=== PATIENT | female | born 1960 | race Caucasian/White ===

== ENCOUNTER → 2016-10-09 | Outpatient (CLI) | payer BC ==
--- NOTE | 2016-10-09 14:18 | MR ---
EXAMINATION TYPE: MR brain wo con DATE OF EXAM: 10/09/2016 2:02 PM COMPARISON: NONE HISTORY: Dizziness FINDINGS: The ventricles, basal cisterns and sulci overlying the cerebral convexities are minimally enlarged. There is evidence of mild periventricular white matter ischemic demyelination. Remote deep white matter insults are also noted. No acute edema is seen on diffusion weighted imaging. There is no evidence for midline shift or mass effect. Acute intracranial hemorrhage or extra-axial collection is not evident. The paranasal sinuses and mastoid air cells are well-aerated. IMPRESSION: Age-related atrophic and chronic small vessel ischemic change. No acute intracranial process at this time.
== END | disposition home or self-care (01) ==
LOC: RADMRIMAIN 13:07
PROVIDERS: ATTEND Family Medicine
DX: R42 Dizziness and giddiness (principal)
CPT/HCPCS: 70551

== ENCOUNTER → 2016-11-17 | Day surgery (SDC) | payer BC ==
[~2016-11-17] MED LIST: BACITRACIN OINT 1 EACH PACKET TOPICAL ONE; LIDOCAINE 1% INJ 10MG/ML (20 ML MDV) ONE; SODIUM BICARB 4% 5 ML VIAL (0.48 MEQ/ML) ONE
--- NOTE | 2016-11-17 13:17 | USB ---
EXAMINATION TYPE: US biopsy breast VAD LT, Postprocedure MG diagnostic mammo LT wo CAD DATE OF EXAM: 11/17/2016 12:27 PM CLINICAL HISTORY: 56-year-old female referred for ultrasound-guided biopsy of palpable 2:00 left breast lesion. R92.8 Abnormal mammogram. TECHNIQUE: Ultrasound guided core biopsy of the left breast. COMPARISON: 11/01/2016 FINDINGS: The procedure of ultrasound guided core biopsy was explained to the patient. Benefits, alternatives, and risks were discussed. An informed consent was then obtained. The palpable elongated cyst cluster versus complex cyst was identified at the 2: 00 position zone B/C. The patient was placed in supine positioning for imaging and for the procedure. The overlying skin was prepped and draped in usual sterile fashion. Lidocaine buffered with bicarbonate was used as anesthetic into the skin and subcutaneous tissue up to area of concern in the left breast. Lidocaine/ epinephrine was not used due to allergy. Under ultrasound guidance, a 13-gauge vacuum-assisted Mammotome Elite biopsy gun device was used to obtain 8 core samples. Following this, a wing clip was left in lesion. The lesion collapsed after the first specimen acquisition. The patient tolerated the procedure well without any immediate complication. The patient was kept in the radiology department for short stay after the procedure and then discharged home in stable condition. Postprocedure mammogram shows clip in place at the upper outer quadrant. IMPRESSION: Successful, uncomplicated ultrasound guided core biopsy of palpable complex cyst versus cyst cluster at the 2:00 left breast; full pathology results to follow. Pathology Results: Benign BREAST, LEFT, CORE BIOPSY: FIBROCYSTIC CHANGES INCLUDING CYSTS AND CYST WALL WITH FIBROSIS AND CHRONIC INFLAMMATION. Recommendation Follow up mammogram of the left breast in 6 months. EFREN
== END ==
LOC: RADUSWWP 11:32
PROVIDERS: ATTEND Surgery
DX: N60.32 Fibrosclerosis of left breast (principal); R92.8 Other abnormal and inconclusive findings on diagnostic imaging of breast; N61.0 Mastitis without abscess; N64.89 Other specified disorders of breast; Z88.8 Allergy status to other drugs, medicaments and biological substances
CPT/HCPCS: 88305; 19083; G0206; A4648; J2001

== ENCOUNTER 2017-12-17 13:52 | Observation (INO) | payer BC ==
--- NOTE | 2017-12-17 14:14 | ED ---
General Adult HPI - General Chief complaint: Chest Pain Stated complaint: chest pain Time Seen by Provider: 12/17/17 13:54 Source: EMS, RN notes reviewed, old records reviewed Mode of arrival: EMS Limitations: no limitations - History of Present Illness Initial comments: 57-year-old female presented for evaluation of chest pain. Patient's pain began approximately one hour prior to arrival. She describes it as substernal pressure. She states she did feel slightly lightheaded and diaphoretic. No nausea or vomiting. No abdominal pain. Patient states she felt well prior to this. She has no history of CAD. She is a nonsmoker. No history of diabetes or hypertension. She states she has had a heart catheterization many years ago and was prescribed nitroglycerin at that time. She states this was secondary to very small coronary artery. No interventions at that time according to the patient. - Related Data Home Medications Medication Instructions Recorded Confirmed ALPRAZolam [Xanax] 0.5 mg PO DAILY PRN 09/04/14 12/17/17 Albuterol Sulfate [Proventil Hfa] 2 puff INHALATION RT-Q6H PRN 09/04/14 12/17/17 Aspirin 81 mg PO DAILY 09/04/14 12/17/17 Gabapentin [Neurontin] 400 mg PO BID 09/04/14 12/17/17 Loratadine [Claritin] 10 mg PO DAILY 09/04/14 12/17/17 buPROPion HCL [Wellbutrin XL] 300 mg PO DAILY 09/04/14 12/17/17 diphenhydrAMINE [Benadryl] 25 mg PO HS 09/04/14 12/17/17 Atorvastatin [Lipitor] 20 mg PO HS 12/17/17 12/17/17 Baclofen [Lioresal] 10 mg PO TID 12/17/17 12/17/17 Levothyroxine Sodium [Synthroid] 125 mcg PO HS 12/17/17 12/17/17 Meclizine [Antivert] 12.5 mg PO BID PRN 12/17/17 12/17/17 Meloxicam [Mobic] 15 mg PO DAILY 12/17/17 12/17/17 Nitroglycerin Sl Tabs [Nitrostat] 0.4 mg SUBLINGUAL Q5M PRN 12/17/17 12/17/17 Vortioxetine Hydrobromide 5 mg PO DAILY 12/17/17 12/17/17 [Trintellix] Allergies Allergy/AdvReac Type Severity Reaction Status Date / Time cashew nut AdvReac MIGRAINES Verified 12/17/17 14:27 epinephrine AdvReac Unknown Verified 12/17/17 14:26 Review of Systems ROS Statement: Those systems with pertinent positive or pertinent negative responses have been documented in the HPI. ROS Other: All systems not noted in ROS Statement are negative. Past Medical History Past Medical History: Hyperlipidemia, Thyroid Disorder History of Any Multi-Drug Resistant Organisms: None Reported Past Surgical History: Bladder Surgery, Hysterectomy, Orthopedic Surgery Additional Past Surgical History / Comment(s): cardiac ablation/metal bar rt arm /carpal tunnel Past Psychological History: Anxiety, Depression Smoking Status: Former smoker Past Alcohol Use History: Occasional General Exam Limitations: no limitations General appearance: alert, in no apparent distress Head exam: Present: atraumatic, normocephalic Eye exam: Present: normal appearance, PERRL, EOMI ENT exam: Present: normal exam, normal oropharynx Neck exam: Present: normal inspection. Absent: tenderness, meningismus Respiratory exam: Present: normal lung sounds bilaterally. Absent: respiratory distress, wheezes Cardiovascular Exam: Present: regular rate, normal rhythm GI/Abdominal exam: Present: soft. Absent: distended, tenderness, guarding Extremities exam: Present: normal inspection, normal capillary refill. Absent: pedal edema, calf tenderness Neurological exam: Present: alert, oriented X3, CN II-XII intact. Absent: motor sensory deficit Psychiatric exam: Present: normal affect, normal mood Skin exam: Present: warm, dry, intact. Absent: cyanosis, diaphoretic Course Vital Signs 12/17/17 12/17/17 13:54 15:17 Temperature 97.2 F L Pulse Rate 64 78 Respiratory 16 18 Rate Blood Pressure 118/56 135/64 O2 Sat by Pulse 99 96 Oximetry - Reevaluation(s) Reevaluation #1: 12/17/17 16:08 Patient remains chest pain-free while in the emergency department. EKG Findings - EKG Comments: EKG Findings:: EKG: Sinus bradycardia, rate of 57, CA interval 142, QRS duration 84, QTC [address] segment elevation or depression Medical Decision Making - Medical Decision Making 57-year-old female presenting with chief complaint of chest pain. Pain resolved at the time my evaluation. EKG shows no definitive signs of ischemia. Workup including CBC, CMP and troponin is negative. Chest x-ray showed borderline cardiomegaly with no acute process. Patient's chest pain is somewhat concerning. Her onset was just prior to arrival. She will be kept in observation for repeat cardiac enzymes and cardiology consultation. - Lab Data Result diagrams: 12/17/17 14:05 12/17/17 14:05 Lab Results 12/17/17 12/17/17 12/17/17 Range/Units 14:05 14:05 14:05 WBC 5.5 (3.8-10.6) k/uL RBC 4.03 (3.80-5.40) m/uL Hgb 13.3 (11.4-16.0) gm/dL Hct 39.0 (34.0-46.0) % MCV 96.9 (80.0-100.0) fL MCH 33.1 (25.0-35.0) pg MCHC 34.2 (31.0-37.0) g/dL RDW 12.5 (11.5-15.5) % Plt Count 238 (150-450) k/uL Neutrophils % 51 % Lymphocytes % 36 % Monocytes % 6 % Eosinophils % 4 % Basophils % 1 % Neutrophils # 2.8 (1.3-7.7) k/uL Lymphocytes # 1.9 (1.0-4.8) k/uL Monocytes # 0.3 (0-1.0) k/uL Eosinophils # 0.2 (0-0.7) k/uL Basophils # 0.0 (0-0.2) k/uL PT (9.0-12.0) sec INR (<1.2) APTT (22.0-30.0) sec Sodium 142 (137-145) mmol/L Potassium 4.8 (3.5-5.1) mmol/L Chloride 107 (98-107) mmol/L Carbon Dioxide 25 (22-30) mmol/L Anion Gap 10 mmol/L BUN 19 H (7-17) mg/dL Creatinine 0.59 (0.52-1.04) mg/dL Est GFR (CKD-EPI)AfAm >90 (>60 ml/min/1.73 sqM) Est GFR (CKD-EPI)NonAf >90 (>60 ml/min/1.73 sqM) Glucose 97 (74-99) mg/dL Calcium 9.6 (8.4-10.2) mg/dL Magnesium 2.1 (1.6-2.3) mg/dL Total Bilirubin 0.4 (0.2-1.3) mg/dL AST 23 (14-36) U/L ALT 34 (9-52) U/L Alkaline Phosphatase 101 (38-126) U/L Total Creatine Kinase 60 (30-135) U/L CK-MB (CK-2) 0.3 (0.0-2.4) ng/mL CK-MB (CK-2) Rel Index 0.5 Troponin I <0.012 (0.000-0.034) ng/mL NT-Pro-B Natriuret Pep pg/mL Total Protein 6.3 (6.3-8.2) g/dL Albumin 4.0 (3.5-5.0) g/dL 12/17/17 12/17/17 Range/Units 14:05 14:05 WBC (3.8-10.6) k/uL RBC (3.80-5.40) m/uL Hgb (11.4-16.0) gm/dL Hct (34.0-46.0) % MCV (80.0-100.0) fL MCH (25.0-35.0) pg MCHC (31.0-37.0) g/dL RDW (11.5-15.5) % Plt Count (150-450) k/uL Neutrophils % % Lymphocytes % % Monocytes % % Eosinophils % % Basophils % % Neutrophils # (1.3-7.7) k/uL Lymphocytes # (1.0-4.8) k/uL Monocytes # (0-1.0) k/uL Eosinophils # (0-0.7) k/uL Basophils # (0-0.2) k/uL PT 9.7 (9.0-12.0) sec INR 1.0 (<1.2) APTT 22.6 (22.0-30.0) sec Sodium (137-145) mmol/L Potassium (3.5-5.1) mmol/L Chloride (98-107) mmol/L Carbon Dioxide (22-30) mmol/L Anion Gap mmol/L BUN (7-17) mg/dL Creatinine (0.52-1.04) mg/dL Est GFR (CKD-EPI)AfAm (>60 ml/min/1.73 sqM) Est GFR (CKD-EPI)NonAf (>60 ml/min/1.73 sqM) Glucose (74-99) mg/dL Calcium (8.4-10.2) mg/dL Magnesium (1.6-2.3) mg/dL Total Bilirubin (0.2-1.3) mg/dL AST (14-36) U/L ALT (9-52) U/L Alkaline Phosphatase (38-126) U/L Total Creatine Kinase (30-135) U/L CK-MB (CK-2) (0.0-2.4) ng/mL CK-MB (CK-2) Rel Index Troponin I (0.000-0.034) ng/mL NT-Pro-B Natriuret Pep 80 pg/mL Total Protein (6.3-8.2) g/dL Albumin (3.5-5.0) g/dL Disposition Clinical Impression: Chest pain Disposition: HOME SELF-CARE Condition: Stable Is patient prescribed a controlled substance at d/c from ED?: No Referrals: Gustavo Lopez III, MD [Primary Care Provider] - 1-2 days Decision to Admit Reason: Admit from EC Decision Date: 12/17/17 Decision Time: 16:09
[2017-12-17 14:21] LABS: Basophils % (A) 1 %; Eosinophils # (A) 0.2 k/uL (0-0.7); Eosinophils % (A) 4 %; HGB 13.3 gm/dL (11.4-16.0); Lymphocytes # (A) 1.9 k/uL (1.0-4.8); Lymphocytes % (A) 36 %; MCH 33.1 pg (25.0-35.0); MCHC 34.2 g/dL (31.0-37.0); MCV 96.9 fL (80.0-100.0); Mean Platelet Volume 7.6; Monocytes # (A) 0.3 k/uL (0-1.0); Monocytes % (A) 6 %; Neutrophils # (A) 2.8 k/uL (1.3-7.7); Neutrophils % (A) 51 %; Platelet Count 238 k/uL (150-450); RBC 4.03 m/uL (3.80-5.40); RDW 12.5 % (11.5-15.5); WBC 5.5 k/uL (3.8-10.6)
[2017-12-17 14:31] LABS: Partial Thromboplastin Time 22.6 sec (22.0-30.0); Prothrombin Time 9.7 sec (9.0-12.0)
[2017-12-17 14:32] LABS: ALT 34 U/L (9-52); AST 23 U/L (14-36); Alkaline Phosphatase 101 U/L (38-126); Anion Gap 10 mmol/L; Blood Urea Nitrogen 19 mg/dL (7-17); Calcium 9.6 mg/dL (8.4-10.2); Carbon Dioxide 25 mmol/L (22-30); Chloride 107 mmol/L (98-107); Glucose 97 mg/dL (74-99); Magnesium 2.1 mg/dL (1.6-2.3); Potassium 4.8 mmol/L (3.5-5.1); Sodium 142 mmol/L (137-145); Total Bilirubin 0.4 mg/dL (0.2-1.3); Total Protein 6.3 g/dL (6.3-8.2)
[2017-12-17 14:50] LABS: Creatine Kinase 60 U/L (30-135)
[2017-12-17 15:04] LABS: Creatine Kinase MB 0.3 ng/mL (0.0-2.4); Troponin I <0.012 ng/mL (0.000-0.034)
--- NOTE | 2017-12-17 15:17 | XR ---
EXAMINATION TYPE: XR chest 2V DATE OF EXAM: 12/17/2017 COMPARISON: None HISTORY: 57-year-old female with chest pain, shortness of breath TECHNIQUE: AP and lateral views FINDINGS: Heart upper limits of normal in size. Aorta and pulmonary vasculature within normal limits. Mild diff use interstitial prominence as a chronic appearance. No consolidation or pleural effusion. IMPRESSION: Borderline heart size and chronic appearing changes. No acute process seen.
[2017-12-17] MEDS ORDERED: ONDANSETRON 4 MG/2 ML VIAL IVP PRN (16:06)
[2017-12-17] MEDS ORDERED: MORPHINE SULFATE 4 MG/ML SYRINGE IV PRN (16:06)
[2017-12-17] MEDS ORDERED: ACETAMINOPHEN TAB 325 MG TAB PO PRN (16:06)
[2017-12-17] MEDS ORDERED: NALOXONE 0.4 MG/ML 1 ML VIAL IV PRN (16:06)
[2017-12-17 20:21] LABS: Creatine Kinase 54 U/L (30-135)
[2017-12-17 20:34] LABS: Creatine Kinase MB 0.3 ng/mL (0.0-2.4); Troponin I <0.012 ng/mL (0.000-0.034)
[2017-12-17] MEDS ORDERED: LEVOTHYROXINE 112 MCG TAB PO SCH (22:45)
[2017-12-17] MEDS ORDERED: diphenhydrAMINE 25 MG CAP PO SCH (22:45)
[2017-12-17] MEDS ORDERED: MELOXICAM 7.5 MG TAB PO SCH (22:45)
[2017-12-17] MEDS ORDERED: ATORVASTATIN 20 MG TAB PO SCH (22:45)
[2017-12-17] MEDS ORDERED: ALBUTEROL NEBULIZED 2.5 MG/3 ML INHALATION PRN (23:15)
--- NOTE | 2017-12-17 23:15 | P.HPIM ---
History of Present Illness H&P Date: 12/17/17 Chief Complaint: Chest pain Patient is a 57-year-old female with a known history of hyperlipidemia, hypothyroidism, anxiety and depression came to ER with complaints of chest pain. Chest pain is mainly midsternal and radiated to the right side and to the back. Chest pain began approximately 1 hour prior to arrival last about 2- 3 minutes. Patient thinks that sublingual nitroglycerin did improve her pain. Patient does have some lightheadedness and sat down. No nausea vomiting. No abdominal pain. No history of prior coronary disease otherwise patient did have a history of cardiac ablation in 1998. Patient does have a family history of coronary artery disease. Her mom and dad of heart disease. Patient does have hyperlipidemia. She states she has had a heart catheterization many years ago and was prescribed nitroglycerin at that time. She states this was secondary to very small coronary artery. No interventions at that time according to the patient. Review of Systems Constitutional: Patient denies any fever or chills . No generalized weakness or weight loss. Abdomen: Patient denied nausea vomiting and diarrhea and abdominal pain. Cardiovascular: Patient denies any chest pain or short of breath no palpitations. Respiratory: patient denied any cough is from production. No shortness of breath Neurologic: Patient denied any numbness or tingling headache. Musculoskeletal: Patient denies any complaints of joint swelling or deformity. Skin: Negative Psychiatric: Negative Endocrine: No heat or cold intolerance. No recent weight gain. Genitourinary: No dysuria or hematuria. All other 14 point ROS negative except the above Past Medical History Past Medical History: Hyperlipidemia, Thyroid Disorder History of Any Multi-Drug Resistant Organisms: None Reported Past Surgical History: Bladder Surgery, Hysterectomy, Orthopedic Surgery Additional Past Surgical History / Comment(s): cardiac ablation/metal bar rt arm /carpal tunnel Past Psychological History: Anxiety, Depression Smoking Status: Former smoker Past Alcohol Use History: Occasional - Past Family History Mother Family Medical History: Deep Vein Thrombosis (DVT) Additional Family Medical History / Comment(s): arrythmia, fibroids,varicose veins, severe gluten allergies, ozzy masectomy d/t benign tumors Father Family Medical History: Cancer, Myocardial Infarction ([place]) Additional Family Medical History / Comment(s): lung cancer Medications and Allergies Home Medications Medication Instructions Recorded Confirmed Type ALPRAZolam [Xanax] 0.5 mg PO DAILY PRN 09/04/14 12/17/17 History Albuterol Sulfate [Proventil Hfa] 2 puff INHALATION RT-Q6H PRN 09/04/14 History Aspirin 81 mg PO DAILY 09/04/14 12/17/17 History Gabapentin [Neurontin] 400 mg PO BID 09/04/14 12/17/17 History Loratadine [Claritin] 10 mg PO DAILY 09/04/14 12/17/17 History buPROPion HCL [Wellbutrin XL] 300 mg PO DAILY 09/04/14 12/17/17 History diphenhydrAMINE [Benadryl] 25 mg PO HS 09/04/14 12/17/17 History Atorvastatin [Lipitor] 20 mg PO HS 12/17/17 12/17/17 History Baclofen [Lioresal] 10 mg PO TID PRN 12/17/17 12/17/17 History Levothyroxine Sodium 112 mcg PO HS 12/17/17 12/17/17 History Meclizine [Antivert] 12.5 mg PO BID PRN 12/17/17 12/17/17 History Meloxicam [Mobic] 15 mg PO HS 12/17/17 12/17/17 History Nitroglycerin Sl Tabs [Nitrostat] 0.4 mg SUBLINGUAL Q5M PRN 12/17/17 12/17/17 History Vortioxetine Hydrobromide 5 mg PO DAILY 12/17/17 12/17/17 History [Trintellix] Allergies Allergy/AdvReac Type Severity Reaction Status Date / Time cashew nut AdvReac MIGRAINES Verified 12/17/17 21:33 epinephrine AdvReac Unknown Verified 12/17/17 21:33 Physical Exam Vitals: Vital Signs Temp Pulse Resp BP Pulse Ox 12/17/17 16:33 70 16 129/72 96 12/17/17 15:17 78 18 135/64 96 12/17/17 13:54 97.2 F L 64 16 118/56 99 Intake and Output 12/17/17 12/17/17 12/17/17 06:59 14:59 22:59 Other: Weight 85.729 kg PHYSICAL EXAMINATION: Patient is lying in the bed comfortably, no acute distress, awake alert and oriented.. HEENT: Normocephalic. Neck is supple. Pupils reactive. Nostrils clear. Oral cavity is moist. Ears reveal no drainage. Neck reveals no JVD, carotid bruits, or thyromegaly. CHEST EXAMINATION: Trachea is central. Symmetrical expansion. Lung dickson clear to auscultation and percussion. CARDIAC: Normal S1, S2 with no gallops. No murmurs ABDOMEN: Soft. Bowel sounds normal. No organomegaly. No abdominal bruits. Extremities: reveal no edema. No clubbing or cyanosis Neurologically awake, alert, oriented x3 with well-coordinated movements. No focal deficits noted Skin: No rash or skin lesions. Psychiatric: Coperative. Nonsuicidal Musculoskeletal: No joint swelling or deformity. Normal range of motion. Results CBC & Chem 7: 12/17/17 14:05 12/17/17 14:05 Labs: Abnormal Lab Results - Last 24 Hours (Table) 12/17/17 Range/Units 14:05 BUN 19 H (7-17) mg/dL Assessment and Plan Assessment: Atypical chest pain. Rule out acute coronary syndrome. Hypothyroidism Hyperlipidemia History of ablation in 1998 Family history of coronary artery disease Plan: Patient be continued on telemetry monitoring. Initial EKG and troponins are negative. D-dimer is not elevated. Patient says that her TSH is within normal limits and was checked in July 2017. BNP not elevated. Cardiology will be consulted and further recommendations based on the clinical course. Time with Patient: Greater than 30
[2017-12-17] MEDS: GABAPENTIN 400 MG CAP PO SCH (23:26)
[2017-12-18 02:53] LABS: Creatine Kinase 51 U/L (30-135)
[2017-12-18 03:05] LABS: Creatine Kinase MB 0.3 ng/mL (0.0-2.4); Troponin I <0.012 ng/mL (0.000-0.034)
[2017-12-18 08:07] VITALS: RESP 18
[2017-12-18] MEDS ORDERED: ASPIRIN 81 MG PO SCH (09:00)
[2017-12-18] MEDS ORDERED: buPROPion XL 300 MG TAB.ER.24H PO SCH (09:00)
[2017-12-18] MEDS ORDERED: Vortioxetine Hydrobromide [Trintellix] 5 MG PO SCH (09:00)
[2017-12-18] MEDS: GABAPENTIN 400 MG CAP PO SCH (10:44)
--- NOTE | 2017-12-18 11:27 | P.CRDCN ---
History of Present Illness History of present illness: Mrs. Tuttle is a pleasant 57-year-old female past medical history significant for dyslipidemia, hypothyroidism and ablation for PVC's in the . She denies history of coronary artery disease, hypertension or diabetes mellitus. We have been asked to see her in consultation for chest pain. She states she was sitting at her computer yesterday when she got acute sharp pain in the midsternal region she then became acutely short of breath and dizzy. She started taking some deep breaths to try and ease the pain but it seemed to get worse. She got up and walked around but the pain persisted with the shortness of breath. She took a sublingual nitroglycerin and called EMS. By the time EMS got there her pain had resolved. She has had no further symptoms of chest pain, shortness of breath or dizziness since admission. She denies ever having had palpitations, nausea, vomiting or diaphoresis. The pain never radiated into her back, neck, jaw or arms. EKG reveals sinus mechanism with no acute ST or T-wave abnormalities. Telemetry tracings have been unremarkable. Chest x-ray shows no acute cardiopulmonary process with borderline heart size. Laboratory data reviewed, hemoglobin 13.3, platelets 238, d-dimer 0.27, sodium 142, potassium 4.8, magnesium 2.1, creatinine 0.59, cardiac enzymes negative 3 , proBNP 80. Current cardiac medications include Lipitor 20 mg daily and aspirin 81 mg daily. She also takes Bobeck, albuterol, Xanax, levothyroxine, Antivert, Benadryl, Wellbutrin, Trintellix Lasix, loratadine, gabapentin and baclofen. Most recent dobutamine stress test performed in the office 05/2017 was negative for stress induced ischemia. Most recent echocardiogram performed in the office 04/2017 shows preserved LV systolic function with mild AR and mild MR. Review of Systems At the time of my exam: CONSTITUTIONAL: Denies fever. Denies chills. EYES: Denies blurred vision. Denies vision changes. Denies eye pain. EARS, NOSE, MOUTH & THROAT: Denies headache. Denies sore throat. Denies ear pain. CARDIOVASCULAR: Denies chest pain. Denies shortness of breath. Denies orthopnea. Denies PND. Denies palpitations. RESPIRATORY: Denies cough. GASTROINTESTINAL: Denies abdominal pain. Denies diarrhea. Denies constipation. Denies nausea. Denies vomiting. MUSCULOSKELETAL: Denies myalgias. INTEGUMENTARY: Denies pruitis. Denies rash. NEUROLOGIC: Denies numbness. Denies tingling. Denies weakness. PSYCHIATRIC: Denies anxiety. Denies depression. ENDOCRINE: Denies fatigue. Denies weight change. Denies polydipsia. Denies polyurina. GENITOURINARY: Denies burning, hematuria or urgency with micturation. HEMATOLOGIC: Denies history of anemia. Denies bleeding. Past Medical History Past Medical History: Hyperlipidemia, Thyroid Disorder Additional Past Medical History / Comment(s): past fall-cracked 3 vertebre, chronic back pain, sciatica, past ovarian cysts,uti,past uterine fibroids, vertigo,arthritis hips, tailbone. head injury as child-fell of a horse."leaky aortic valve", early macular degeneration, hx pvc's, bronchits, seasonal allergies, rosacea. History of Any Multi-Drug Resistant Organisms: None Reported Past Surgical History: Bladder Surgery, Hysterectomy, Orthopedic Surgery Additional Past Surgical History / Comment(s): cardiac ablation/metal bar rt arm /carpal tunnel Past Anesthesia/Blood Transfusion Reactions: Motion Sickness Past Psychological History: Anxiety, Depression Smoking Status: Former smoker Past Alcohol Use History: Occasional - Past Family History Mother Family Medical History: Deep Vein Thrombosis (DVT) Additional Family Medical History / Comment(s): arrythmia, fibroids,varicose veins, severe gluten allergies, ozzy masectomy d/t benign tumors Father Family Medical History: Cancer, Myocardial Infarction ([place]) Additional Family Medical History / Comment(s): lung cancer Medications and Allergies Home Medications Medication Instructions Recorded Confirmed Type Albuterol Sulfate [Proventil Hfa] 2 puff INHALATION RT-Q6H PRN 09/04/14 History Aspirin 81 mg PO DAILY 09/04/14 12/17/17 History Gabapentin [Neurontin] 400 mg PO BID 09/04/14 12/17/17 History Loratadine [Claritin] 10 mg PO DAILY 09/04/14 12/17/17 History buPROPion HCL [Wellbutrin XL] 300 mg PO DAILY 09/04/14 12/17/17 History diphenhydrAMINE [Benadryl] 25 mg PO HS 09/04/14 12/17/17 History Atorvastatin [Lipitor] 20 mg PO HS 12/17/17 12/17/17 History Baclofen [Lioresal] 10 mg PO TID PRN 12/17/17 12/17/17 History Levothyroxine Sodium 112 mcg PO HS 12/17/17 12/17/17 History Meclizine [Antivert] 12.5 mg PO BID PRN 12/17/17 12/17/17 History Meloxicam [Mobic] 15 mg PO HS 12/17/17 12/17/17 History Nitroglycerin Sl Tabs [Nitrostat] 0.4 mg SUBLINGUAL Q5M PRN 12/17/17 12/17/17 History Vortioxetine Hydrobromide 5 mg PO DAILY 12/17/17 12/17/17 History [Trintellix] ALPRAZolam [Xanax] 0.5 mg PO DAILY PRN #3 tab 12/18/17 Rx Allergies Allergy/AdvReac Type Severity Reaction Status Date / Time cashew nut AdvReac MIGRAINES Verified 12/17/17 21:33 epinephrine AdvReac Unknown Verified 12/17/17 21:33 Physical Exam Vitals: Vital Signs Temp Pulse Pulse Resp BP BP Pulse Ox 12/18/17 07:35 97.4 F L 67 18 112/58 99 12/18/17 07:28 65 12/18/17 07:13 72 98 12/18/17 04:00 16 12/18/17 03:50 98.1 F 65 16 102/64 95 12/18/17 00:00 16 12/17/17 23:28 97.6 F 60 16 112/58 98 12/17/17 20:48 97.9 F 65 16 136/67 96 12/17/17 20:32 97.7 F 67 16 118/72 96 12/17/17 20:00 16 12/17/17 19:27 65 18 124/69 96 12/17/17 18:05 88 16 128/69 96 12/17/17 16:33 70 16 129/72 96 12/17/17 15:17 78 18 135/64 96 12/17/17 13:54 97.2 F L 64 16 118/56 99 Intake and Output 12/17/17 12/18/17 12/18/17 22:59 06:59 14:59 Other: # Voids 1 Blood pressure 112/58 heart rate 67 afebrile maintaining oxygen saturation on nasal cannula GENERAL: This is a 57-year-old occasion female in no apparent distress at the time of my examination. HEENT: Head is atraumatic, normocephalic. Pupils are equal, round. Sclerae anicteric. Conjunctivae are clear. Mucous membranes of the mouth are moist. Neck is supple. There is no jugular venous distention. No carotid bruit is heard. LUNGS: Clear to auscultation no wheezes, rales or rhonchi. No chest wall tenderness is noted on palpation or with deep breathing. HEART: Regular rate and rhythm without murmurs, rubs or gallops. S1 and S2 heard. ABDOMEN: Soft, nontender. Bowel sounds are heard. No organomegaly noted. EXTREMITIES: No evidence of peripheral edema and no calf tenderness noted. VASCULAR: Radial and dorsalis pedis pulses palpated, no evidence of clubbing. NEUROLOGIC: Patient is awake, alert and oriented x3. Results 12/17/17 14:05 12/17/17 14:05 Cardiac Enzymes 12/17/17 12/17/17 12/17/17 Range/Units 14:05 14:05 19:56 AST 23 (14-36) U/L CK-MB (CK-2) 0.3 0.3 (0.0-2.4) ng/mL Troponin I <0.012 <0.012 (0.000-0.034) ng/mL 12/18/17 Range/Units 01:49 AST (14-36) U/L CK-MB (CK-2) 0.3 (0.0-2.4) ng/mL Troponin I <0.012 (0.000-0.034) ng/mL Coagulation 12/17/17 Range/Units 14:05 PT 9.7 (9.0-12.0) sec APTT 22.6 (22.0-30.0) sec CBC 12/17/17 Range/Units 14:05 WBC 5.5 (3.8-10.6) k/uL RBC 4.03 (3.80-5.40) m/uL Hgb 13.3 (11.4-16.0) gm/dL Hct 39.0 (34.0-46.0) % Plt Count 238 (150-450) k/uL Comprehensive Metabolic Panel 12/17/17 Range/Units 14:05 Sodium 142 (137-145) mmol/L Potassium 4.8 (3.5-5.1) mmol/L Chloride 107 (98-107) mmol/L Carbon Dioxide 25 (22-30) mmol/L BUN 19 H (7-17) mg/dL Creatinine 0.59 (0.52-1.04) mg/dL Glucose 97 (74-99) mg/dL Calcium 9.6 (8.4-10.2) mg/dL AST 23 (14-36) U/L ALT 34 (9-52) U/L Alkaline Phosphatase 101 (38-126) U/L Total Protein 6.3 (6.3-8.2) g/dL Albumin 4.0 (3.5-5.0) g/dL Current Medications Generic Name Dose Route Start Last Admin Trade Name Freq PRN Reason Stop Dose Admin Acetaminophen 650 mg 12/17/17 16:06 12/18/17 07:06 Tylenol Tab PO 650 mg Q6HR PRN Administration Mild Pain or Fever > 100.5 Albuterol Sulfate 2.5 mg 12/17/17 23:15 12/18/17 07:13 Ventolin Nebulized INHALATION 2.5 mg RT-Q6H PRN Administration Dyspnea Aspirin 81 mg 12/18/17 09:00 Aspirin PO DAILY STACIE Atorvastatin Calcium 20 mg 12/17/17 22:45 12/17/17 23:26 Lipitor PO 20 mg HS STACIE Administration Bupropion HCl 300 mg 12/18/17 09:00 Wellbutrin Xl PO DAILY STACIE Diphenhydramine HCl 25 mg 12/17/17 22:45 12/17/17 23:26 Benadryl PO 25 mg HS STACIE Administration Gabapentin 400 mg 12/17/17 22:45 12/17/17 23:26 Neurontin PO 400 mg BID STACIE Administration Levothyroxine Sodium 112 mcg 12/17/17 22:45 12/17/17 23:26 Synthroid PO 112 mcg HS STACIE Administration Meloxicam 15 mg 12/17/17 22:45 12/17/17 23:26 Mobic PO 15 mg HS STACIE Administration Morphine Sulfate 4 mg 05/21/18 16:06 Morphine Sulfate (Inj) IV Q4HR PRN Severe Pain Naloxone HCl 0.2 mg 12/17/17 16:06 Narcan IV Q2M PRN Opioid Reversal Vortioxetine 5 mg 12/18/17 09:00 Hydrobromide [ PO Trintellix] 5 Mg DAILY STACIE Ondansetron HCl 4 mg 12/17/17 16:06 Zofran IVP Q8HR PRN Nausea And Vomiting Intake and Output 12/17/17 12/18/17 12/18/17 22:59 06:59 14:59 Other: # Voids 1 12/17/17 14:05 12/17/17 14:05 Assessment and Plan Assessment: ASSESSMENT 1. Chest pain, atypical 2. Dyslipidemia 3. History of cardiac ablation in the past for PVC's. 4. History of anxiety/depression PLAN An acute coronary event has been ruled out with no EKG evidence of ischemia and negative cardiac enzymes. Normal stress test in the office in May 2017. Will not repeat a stress test on this admission. Increase activity and assess for further symptoms of chest pain. If she is chest pain free she is stable from a cardiac perspective. Follow-up with Dr. Pfeiffer in 2-3 weeks. Nurse Practitioner note has been reviewed, I agree with a documented findings and plan of care. Patient was seen and examined.
[2017-12-18 11:46] VITALS: BP 114/64; PULSE 73; TEMP 97.7
--- NOTE | 2017-12-18 19:08 | DS ---
DISCHARGE SUMMARY FINAL DIAGNOSES: 1. Chest pain, myocardial infarction ruled out. 2. Recent negative stress test. 3. Hypothyroidism. 4. Hyperlipidemia. 5. History of cardiac ablation . 6. Family history of coronary artery disease. DISCHARGE DISPOSITION: The patient is being discharged in stable condition with guarded prognosis. This 57- year-old woman with past medical history of multiple medical problems was admitted with chest pain, myocardial infarction ruled out. Cardiology saw the patient. Dr. Pfeiffer recommended outpatient followup. If the patient has recurrence of pains, I recommend the patient follow up with Cardiology closely. Stable. Overall prognosis guarded. Patient's family understands and agrees. On exam, vital signs stable. Cardiovascular: S1, S2. Abdomen soft. Central nervous system: No focal deficits. DISCHARGE ADVICE AND MEDICATION: 1. Diet is cardiac diet. 2. Activity limited until followup. 3. Follow up with Dr. Lopez in 2-3 days. 4. Follow up with Dr. Pfeiffer as recommended. MEDICATIONS ARE: 1. Proventil 2 puffs q.6h p.r.n. 2. Aspirin 81 mg p.o. daily. 3. Lipitor 20 mg q.h.s. 4. Baclofen 10 mg p.o. t.i.d. p.r.n. 5. Wellbutrin XL 200 mg p.o. daily. 6. Benadryl 25 mg p.o. q.h.s. 7. Neurontin 400 mg p.o. b.i.d. 8. Levothyroxine 112 mcg p.o. q.h.s. 9. Claritin 10 mg p.o. daily. 10.Antivert 12.5 mg b.i.d. 11.Mobic 50 mg q.h.s. 12.Nitro 0.4 mg p.r.n. 13.Vortoxcin hydrobromide 5 mg p.o. daily. Once again, the patient is being discharged in stable condition with guarded prognosis. MMODL / IJN: [id number] / MTDD
== END 2017-12-18 14:25 | disposition home or self-care (01) ==
LOC: EC 13:52 → 3OBS 16:06
PROVIDERS: ADMIT Internal Medicine; ATTEND Internal Medicine
DX: R07.89 Other chest pain (principal); R42 Dizziness and giddiness; R61 Generalized hyperhidrosis; R06.02 Shortness of breath; E78.5 Hyperlipidemia, unspecified; E03.9 Hypothyroidism, unspecified; F32.9 Major depressive disorder, single episode, unspecified; F41.9 Anxiety disorder, unspecified; J30.2 Other seasonal allergic rhinitis; G89.29 Other chronic pain; M54.9 Dorsalgia, unspecified; M54.30 Sciatica, unspecified side; H35.30 Unspecified macular degeneration; M16.0 Bilateral primary osteoarthritis of hip; M47.898 Other spondylosis, sacral and sacrococcygeal region; L71.9 Rosacea, unspecified; Z79.82 Long term (current) use of aspirin; Z79.890 Hormone replacement therapy; Z79.1 Long term (current) use of non-steroidal anti-inflammatories (NSAID); Z79.899 Other long term (current) drug therapy; Z87.828 Personal history of other (healed) physical injury and trauma; Z87.440 Personal history of urinary (tract) infections; Z87.891 Personal history of nicotine dependence; Z88.8 Allergy status to other drugs, medicaments and biological substances; Z91.018 Allergy to other foods; Z90.710 Acquired absence of both cervix and uterus; Z82.49 Family history of ischemic heart disease and other diseases of the circulatory system; Z80.1 Family history of malignant neoplasm of trachea, bronchus and lung; Z83.2 Family history of diseases of the blood and blood-forming organs and certain disorders involving the immune mechanism
CPT/HCPCS: 99285 ×2; 36415; 94640; 94760; 93005; 85379; 83880; 80053; 82550 ×2; 82553 ×2; 83735; 84484 ×2; 85025; 85610; 85730; 71046; G0378 ×2

== ENCOUNTER 2018-03-18 07:07 | Emergency (ER) | payer BC ==
[2018-03-18] MEDS ORDERED: KETOROLAC 30 MG/ML 1 ML VIAL IVP STA (07:25)
[2018-03-18] MEDS ORDERED: SODIUM CHLORIDE 0.9% 500 ML IV STA (07:25)
[2018-03-18] MEDS ORDERED: SODIUM CHLORIDE 0.9% 1,000 ML IV STA (07:25)
--- NOTE | 2018-03-18 07:27 | ED ---
Abdominal Pain HPI - General Chief Complaint: Abdominal Pain Stated Complaint: BACK PAIN Time Seen by Provider: 03/18/18 07:19 Source: patient, RN notes reviewed Mode of arrival: ambulatory Limitations: no limitations - History of Present Illness Initial Comments: This is a 58-year-old female presents emergency Department chief complaint of left flank pain. Patient states this started yesterday but seemed to worsen around 1:30 AM. Patient states that the pain is always area does wax and wane and nothing makes it feel better. She tried tramadol at home with no relief. She states movement does not make pain worse. She has no history of diverticulitis or bowel infection. She has had ovarian cysts in the past. Patient reports no nausea, vomiting, diarrhea constipation. She did have 2 bowel movements with no change in no difficulty. Patient reports no fever, chills, night sweats. She has no dysuria no hematuria. - Related Data Home Medications Medication Instructions Recorded Confirmed Albuterol Sulfate [Proventil Hfa] 2 puff INHALATION RT-Q6H PRN 09/04/14 12/17/17 Aspirin 81 mg PO DAILY 09/04/14 12/17/17 Gabapentin [Neurontin] 400 mg PO BID 09/04/14 12/17/17 Loratadine [Claritin] 10 mg PO DAILY 09/04/14 12/17/17 buPROPion HCL [Wellbutrin XL] 300 mg PO DAILY 09/04/14 12/17/17 diphenhydrAMINE [Benadryl] 25 mg PO HS 09/04/14 12/17/17 Atorvastatin [Lipitor] 20 mg PO HS 12/17/17 12/17/17 Baclofen [Lioresal] 10 mg PO TID PRN 12/17/17 12/17/17 Levothyroxine Sodium 112 mcg PO HS 12/17/17 12/17/17 Meclizine [Antivert] 12.5 mg PO BID PRN 12/17/17 12/17/17 Meloxicam [Mobic] 15 mg PO HS 12/17/17 12/17/17 Nitroglycerin Sl Tabs [Nitrostat] 0.4 mg SUBLINGUAL Q5M PRN 12/17/17 12/17/17 Vortioxetine Hydrobromide 5 mg PO DAILY 12/17/17 12/17/17 [Trintellix] Previous Rx's Medication Instructions Recorded Hydrocodone/Acetaminophen [Morrison 1 tab PO Q6HR PRN #12 tab 03/18/18 5-325] Ketorolac [Toradol] 10 mg PO Q8HR #15 tab 03/18/18 Ondansetron Odt [Zofran Odt] 4 mg PO Q8HR PRN #10 tab 03/18/18 Tamsulosin [Flomax] 0.4 mg PO DAILY #7 cap 03/18/18 Allergies Allergy/AdvReac Type Severity Reaction Status Date / Time cashew nut AdvReac MIGRAINES Verified 12/17/17 21:33 epinephrine AdvReac Unknown Verified 12/17/17 21:33 Review of Systems ROS Statement: Those systems with pertinent positive or pertinent negative responses have been documented in the HPI. ROS Other: All systems not noted in ROS Statement are negative. Past Medical History Past Medical History: Hyperlipidemia, Thyroid Disorder Additional Past Medical History / Comment(s): past fall-cracked 3 vertebre, chronic back pain, sciatica, past ovarian cysts,uti,past uterine fibroids, vertigo,arthritis hips, tailbone. head injury as child-fell of a horse."leaky aortic valve", early macular degeneration, hx pvc's, bronchits, seasonal allergies, rosacea. History of Any Multi-Drug Resistant Organisms: None Reported Past Surgical History: Bladder Surgery, Hysterectomy, Orthopedic Surgery Additional Past Surgical History / Comment(s): cardiac ablation/metal bar rt arm /carpal tunnel Past Anesthesia/Blood Transfusion Reactions: Motion Sickness Past Psychological History: Anxiety, Depression Smoking Status: Former smoker Past Alcohol Use History: Occasional Past Drug Use History: None Reported - Past Family History Mother Family Medical History: Deep Vein Thrombosis (DVT) Additional Family Medical History / Comment(s): arrythmia, fibroids,varicose veins, severe gluten allergies, ozzy masectomy d/t benign tumors Father Family Medical History: Cancer, Myocardial Infarction ([place]) Additional Family Medical History / Comment(s): lung cancer General Exam Limitations: no limitations General appearance: alert, in no apparent distress Head exam: Present: atraumatic, normocephalic, normal inspection Respiratory exam: Present: normal lung sounds bilaterally. Absent: respiratory distress, wheezes, rales, rhonchi, stridor Cardiovascular Exam: Present: regular rate, normal rhythm, normal heart sounds. Absent: systolic murmur, diastolic murmur, rubs, gallop, clicks GI/Abdominal exam: Present: soft, tenderness (Mild tenderness the left side), normal bowel sounds. Absent: distended, guarding, rebound, rigid Back exam: Present: full ROM, CVA tenderness (L). Absent: CVA tenderness (R), paraspinal tenderness, vertebral tenderness Skin exam: Present: warm, dry, intact, normal color. Absent: rash Course Vital Signs 03/18/18 07:12 Temperature 97.8 F Pulse Rate 74 Respiratory 16 Rate Blood Pressure 122/77 O2 Sat by Pulse 97 Oximetry Medical Decision Making - Medical Decision Making 58-year-old female presents emergency department for left-sided flank pain. Patient is found to have a 6 mm proximal ureter stone. Patient has mild hydroureter ureter. Patient has normal renal function and she will follow-up with urology. Patient will be discharged with Flomax, Morrison, Toradol, Zofran. - Lab Data Result diagrams: 03/18/18 07:41 03/18/18 07:41 Lab Results 03/18/18 03/18/18 03/18/18 Range/Units 07:41 07:41 08:00 WBC 6.5 (3.8-10.6) k/uL RBC 4.17 (3.80-5.40) m/uL Hgb 13.4 (11.4-16.0) gm/dL Hct 40.4 (34.0-46.0) % MCV 97.1 (80.0-100.0) fL MCH 32.1 (25.0-35.0) pg MCHC 33.1 (31.0-37.0) g/dL RDW 12.7 (11.5-15.5) % Plt Count 271 (150-450) k/uL Neutrophils % 68 % Lymphocytes % 20 % Monocytes % 7 % Eosinophils % 3 % Basophils % 0 % Neutrophils # 4.4 (1.3-7.7) k/uL Lymphocytes # 1.3 (1.0-4.8) k/uL Monocytes # 0.4 (0-1.0) k/uL Eosinophils # 0.2 (0-0.7) k/uL Basophils # 0.0 (0-0.2) k/uL Sodium 141 (137-145) mmol/L Potassium 4.5 (3.5-5.1) mmol/L Chloride 108 H (98-107) mmol/L Carbon Dioxide 26 (22-30) mmol/L Anion Gap 7 mmol/L BUN 18 H (7-17) mg/dL Creatinine 0.76 (0.52-1.04) mg/dL Est GFR (CKD-EPI)AfAm >90 (>60 ml/min/1.73 sqM) Est GFR (CKD-EPI)NonAf 86 (>60 ml/min/1.73 sqM) Glucose 125 H (74-99) mg/dL Calcium 9.1 (8.4-10.2) mg/dL Total Bilirubin 0.4 (0.2-1.3) mg/dL AST 24 (14-36) U/L ALT 33 (9-52) U/L Alkaline Phosphatase 92 (38-126) U/L Total Protein 6.6 (6.3-8.2) g/dL Albumin 3.9 (3.5-5.0) g/dL Amylase 46 (30-110) U/L Lipase 100 (23-300) U/L Urine Color Yellow Urine Appearance Cloudy H (Clear) Urine pH 5.5 (5.0-8.0) Ur Specific Rickreall 1.018 (1.001-1.035) Urine Protein Trace H (Negative) Urine Glucose (UA) Negative (Negative) Urine Ketones Negative (Negative) Urine Blood Large H (Negative) Urine Nitrite Negative (Negative) Urine Bilirubin Negative (Negative) Urine Urobilinogen <2.0 (<2.0) mg/dL Ur Leukocyte Esterase Large H (Negative) Urine RBC >182 H (0-5) /hpf Urine WBC 19 H (0-5) /hpf Ur Squamous Epith Cells 2 (0-4) /hpf Urine Bacteria Rare H (None) /hpf Urine Mucus Occasional H (None) /hpf Disposition Clinical Impression: Ureteral calculi Disposition: HOME SELF-CARE Condition: Stable Instructions: Kidney Stones (ED) Additional Instructions: Please return to the Emergency Department if symptoms worsen or any other concerns. Prescriptions: Hydrocodone/Acetaminophen [Morrison 5-325] 1 tab PO Q6HR PRN #12 tab PRN Reason: Pain Ketorolac [Toradol] 10 mg PO Q8HR #15 tab Ondansetron Odt [Zofran Odt] 4 mg PO Q8HR PRN #10 tab PRN Reason: Nausea Tamsulosin [Flomax] 0.4 mg PO DAILY #7 cap Is patient prescribed a controlled substance at d/c from ED?: Yes When asked, does pt state using other controlled substances?: No If prescribed controlled substance>3 days was MAPS reviewed?: Prescribed <3 Days If opioid is for acute pain is fill amount 7 days or less?: Yes If Rx opioid, was Start Talking consent form obtained?: Yes Referrals: Gustavo Lopez III, MD [Primary Care Provider] - 1-2 days Rodney Jaimes MD [STAFF PHYSICIAN] - 1-2 days Time of Disposition: 09:54
[2018-03-18 07:56] LABS: Basophils % (A) 0 %; Eosinophils # (A) 0.2 k/uL (0-0.7); Eosinophils % (A) 3 %; HCT 40.4 % (34.0-46.0); HGB 13.4 gm/dL (11.4-16.0); Lymphocytes # (A) 1.3 k/uL (1.0-4.8); Lymphocytes % (A) 20 %; MCH 32.1 pg (25.0-35.0); MCHC 33.1 g/dL (31.0-37.0); MCV 97.1 fL (80.0-100.0); Mean Platelet Volume 7.2; Monocytes # (A) 0.4 k/uL (0-1.0); Monocytes % (A) 7 %; Neutrophils # (A) 4.4 k/uL (1.3-7.7); Neutrophils % (A) 68 %; Platelet Count 271 k/uL (150-450); RBC 4.17 m/uL (3.80-5.40); RDW 12.7 % (11.5-15.5); WBC 6.5 k/uL (3.8-10.6)
--- NOTE | 2018-03-18 08:14 | XR ---
Abdomen HISTORY: Pain Frontal view the abdomen on 2 images correlated to prior abdomen 09/22/2013 Lung bases are clear. There is no evident bowel obstruction or pneumoperitoneum. Mild spinal curvatur e, degenerative disc changes are noted within the visualized spine. Postop changes are noted at the l evel of the pubic bones as on prior exam. IMPRESSION: Nonobstructive bowel gas pattern, follow-up as indicated
[2018-03-18 08:15] LABS: Glucose 125 mg/dL (74-99); Total Protein 6.6 g/dL (6.3-8.2)
[2018-03-18 08:16] LABS: AST 24 U/L (14-36); Albumin 3.9 g/dL (3.5-5.0); Amylase 46 U/L (30-110); Blood Urea Nitrogen 18 mg/dL (7-17); Calcium 9.1 mg/dL (8.4-10.2); Carbon Dioxide 26 mmol/L (22-30); Lipase 100 U/L (23-300); Potassium 4.5 mmol/L (3.5-5.1); Sodium 141 mmol/L (137-145); Total Bilirubin 0.4 mg/dL (0.2-1.3)
[2018-03-18 08:17] LABS: ALT 33 U/L (9-52); Alkaline Phosphatase 92 U/L (38-126); Anion Gap 7 mmol/L; Chloride 108 mmol/L (98-107)
[2018-03-18] MEDS ORDERED: ONDANSETRON 4 MG/2 ML VIAL IVP STA (08:17)
[2018-03-18] MEDS ORDERED: MORPHINE SULFATE 2 MG/ML SYRINGE IVP ONE (08:17)
[2018-03-18 08:37] LABS: Appearance,Urine Cloudy (Clear); Bacteria,Urine Rare /hpf; Bilirubin,Urine Negative (Negative); Blood,Urine Large (Negative); Color,Urine Yellow; Glucose,Urine (UA) Negative (Negative); Ketones,Urine Negative (Negative); Leukocyte Esterase,Urine Large (Negative); Mucus,Urine Occasional /hpf; Nitrite,Urine Negative (Negative); PH, Urine 5.5 (5.0-8.0); Protein,Urine Trace (Negative); RBC,Urine >182 /hpf (0-5); Specific Gravity,Urine 1.018 (1.001-1.035); Squamous Epithelial Cell,Urine 2 /hpf (0-4); Urobilinogen,Urine <2.0 mg/dL (<2.0); WBC,Urine 19 /hpf (0-5)
--- NOTE | 2018-03-18 09:27 | CT ---
EXAMINATION TYPE: CT abdomen pelvis wo con DATE OF EXAM: 03/18/2018 COMPARISON: None INDICATION: Patient complains of left flank pain. DLP: 682.7 mGycm, Automated exposure control for dose reduction was used. CONTRAST: 0 mL of Isovue 300. Study performed without Oral Contrast TECHNIQUE: Axial images were obtained from above the diaphragm to the pubic rami in the axial plane a t 5 mm thick sections. Reconstructed images are reviewed on the computer in the coronal plane. FINDINGS: Limited CT sections are obtained the lung bases. Minimal compressive atelectasis is within the depen dent portion of the lung bases.. Small hiatal hernia may be present. CT ABDOMEN: Liver: Normal Spleen: Normal Pancreas: Normal Adrenal glands: There is a low-density nodule on the posterior limb of the left adrenal gland measuri ng 1.5 cm and 7 Hounsfield units. Gallbladder: Normal Kidneys: No masses are evident. Mild left hydronephrosis present. Proximal left hydroureter is presen t. Within the proximal ureter is a nonobstructing 0.6 cm calcification. Series 3 image 62[address] Distal ure ter appears normal. Right sided hydronephrosis or hydroureter is not evident. No cysts are present. No renal stones are identified. Aorta: Normal Inferior vena cava: Normal. CT PELVIS: Loops of bowel within the abdomen and pelvis are normal. Study is without oral contrast limiting bowel evaluation. Appendix: Normal as visualized. Urinary bladder: Partially decompressed. Normal as visualized. Genitourinary structures: Uterus is not identified. Adnexal regions appear within normal limits. Osseous structures: Sacroiliac joint degenerative changes present. IMPRESSIONS: 1. 0.6 and a proximal left ureteral stone with mild left hydronephrosis and hydroureter
[2018-03-18] MEDS ORDERED: MORPHINE SULFATE 4 MG/ML SYRINGE IVP STA (09:42)
[2018-03-18 10:08] VITALS: BP 134/77; PULSE 70; RESP 18; TEMP 98
== END 2018-03-18 10:07 | disposition home or self-care (01) ==
LOC: EC 07:07
DX: N13.2 Hydronephrosis with renal and ureteral calculous obstruction (principal); E78.5 Hyperlipidemia, unspecified; E07.9 Disorder of thyroid, unspecified; M16.0 Bilateral primary osteoarthritis of hip; F41.9 Anxiety disorder, unspecified; F32.9 Major depressive disorder, single episode, unspecified; Z90.710 Acquired absence of both cervix and uterus; Z87.891 Personal history of nicotine dependence; Z79.82 Long term (current) use of aspirin; Z79.1 Long term (current) use of non-steroidal anti-inflammatories (NSAID); Z79.899 Other long term (current) drug therapy; Z91.018 Allergy to other foods; Z88.8 Allergy status to other drugs, medicaments and biological substances
CPT/HCPCS: 36415; 80053; 82150; 83690; 85025; 81001; 74018; 74176; 99284; 96374; 96375 ×2; 96376; 96361; J2270 ×2; J2405; J1885

== ENCOUNTER → 2018-03-25 | Outpatient (CLI) | payer BC ==
--- NOTE | 2018-03-25 16:08 | XR ---
Abdomen HISTORY: Left flank pain, ureteral calculus Frontal view of the abdomen than 2 inches and correlated prior exam 03/18/2018 6 to 7 mm calcification present in left paraspinal location at approximately L3 level. Phlebolith is noted within the pelvis. No evident bowel obstruction or pneumoperitoneum. Lung bases are not include d on exam. Postop changes are noted to the pubic symphysis. IMPRESSION: Proximal left ureteral calculus.
== END | disposition home or self-care (01) ==
LOC: RADXRMAIN 09:45
PROVIDERS: ATTEND Urology
DX: N20.1 Calculus of ureter (principal)
CPT/HCPCS: 74018

== ENCOUNTER → 2018-04-30 | Outpatient (CLI) | payer BC ==
--- NOTE | 2018-05-02 09:17 | MM ---
Reason for exam: screening (asymptomatic). Last mammogram was performed 11 months ago. History: Patient is postmenopausal. Family history of breast cancer in paternal aunt at age 60. Benign US biopsy breast VAD LT of the left breast, November 17, 2016. Physical Findings: A clinical breast exam by your physician is recommended on an annual basis and results should be correlated with mammographic findings. MG 3D Screening Mammo W/Cad Bilateral CC and MLO view(s) were taken. Prior study comparison: May 21, 2017, left breast MG 3d diag mammo w/cad LT. November 17, 2016, left breast MG diagnostic mammo LT wo CAD. The breast tissue is heterogeneously dense. This may lower the sensitivity of mammography. Previous mammotome biopsy in the left breast. No significant changes when compared with prior studies. ASSESSMENT: Benign, BI-RAD 2 RECOMMENDATION: Routine screening mammogram of both breasts in 1 year.
== END | disposition home or self-care (01) ==
LOC: RADMAMWWP 10:48
PROVIDERS: ATTEND Family Medicine
DX: Z12.31 Encounter for screening mammogram for malignant neoplasm of breast (principal)
CPT/HCPCS: 77063; 77067

== ENCOUNTER → 2018-04-30 | Outpatient (CLI) | payer BC ==
--- NOTE | 2018-04-30 12:21 | US ---
EXAMINATION TYPE: US kidneys/renal and bladder DATE OF EXAM: 04/30/2018 COMPARISON: CT 03/18/2018, KUB 03/25/2018 CLINICAL HISTORY: R93.4 Abn Findings Of Urinary Organs. History of left side kidney stone. Had stent removed about 5 weeks ago left side EXAM MEASUREMENTS: Right Kidney: 10.2 x 5.0 x 5.9 cm Left Kidney: 10.8 x 5.3 x 5.1 cm Right Kidney: No hydronephrosis or masses seen Left Kidney: No hydronephrosis or masses seen Bladder: wnl Bilateral Jets seen: Yes There is no evidence for hydronephrosis at this point in time. No nephrolithiasis is seen. No gwen s are identified. The urinary bladder is anechoic. Bilateral ureteral jets are seen. IMPRESSION: No acute process. No evidence of hydronephrosis on today's exam relative to the previous CT scan. Cor relate for passage of ureteral stone.
== END | disposition home or self-care (01) ==
LOC: RADUSWWP 11:36
PROVIDERS: ATTEND Urology
DX: Z09 Encounter for follow-up examination after completed treatment for conditions other than malignant neoplasm (principal); Z87.448 Personal history of other diseases of urinary system; Z98.890 Other specified postprocedural states
CPT/HCPCS: 76770

== ENCOUNTER 2018-08-09 10:09 | Emergency (ER) | payer BC ==
[2018-08-09 10:14] VITALS: TEMP 97.8
--- NOTE | 2018-08-09 10:27 | ED ---
General Adult HPI - General Chief complaint: Fall Stated complaint: back injur leg injury Time Seen by Provider: 08/09/18 10:17 Source: patient, RN notes reviewed Mode of arrival: ambulatory Limitations: no limitations - History of Present Illness Initial comments: Patient's a 58-year-old female presenting to the emergency room today with a chief complaint of a fall that occurred just prior to arrival. She does admit that her was working in a crawl space had the floor open. She did not realize when she opened the door accidentally stepped in and through a floor joist. Patient does admit to pain to the right foot, ankle, knee. She also admits some pain to her right side of the lower back. Admits to history of low back pain and states feels consistent with back pain that she's had before. She does admit that it's worse with certain movements. Admits that she's having pain in the right lower leg that is also worse with any movement. Patient denies any head injury or loss of consciousness. She states she is not on any blood thinners. She denies any other complaints currently. Patient denies any recent fever, chills, shortness of breath, chest pain, abdominal pain , nausea or vomiting, numbness or tingling, headaches or visual changes, or any other complaints. - Related Data Home Medications Medication Instructions Recorded Confirmed Albuterol Sulfate [Proventil Hfa] 2 puff INHALATION RT-Q6H PRN 09/04/14 08/09/18 Aspirin 81 mg PO DAILY 09/04/14 08/09/18 Gabapentin [Neurontin] 400 mg PO BID 09/04/14 08/09/18 Loratadine [Claritin] 10 mg PO DAILY 09/04/14 08/09/18 buPROPion HCL [Wellbutrin XL] 300 mg PO DAILY 09/04/14 08/09/18 diphenhydrAMINE [Benadryl] 25 mg PO HS 09/04/14 08/09/18 Baclofen [Lioresal] 10 mg PO TID PRN 12/17/17 08/09/18 Meclizine [Antivert] 12.5 mg PO BID PRN 12/17/17 08/09/18 Meloxicam [Mobic] 15 mg PO HS 12/17/17 08/09/18 Nitroglycerin Sl Tabs [Nitrostat] 0.4 mg SUBLINGUAL Q5M PRN 12/17/17 08/09/18 Vortioxetine Hydrobromide 5 mg PO DAILY 12/17/17 08/09/18 [Trintellix] ALPRAZolam [Xanax] 0.5 mg PO DAILY PRN 08/09/18 08/09/18 Atorvastatin [Lipitor] 40 mg PO HS 08/09/18 08/09/18 Levothyroxine Sodium [Synthroid] 100 mcg PO DAILY 08/09/18 08/09/18 Previous Rx's Medication Instructions Recorded Ondansetron Odt [Zofran Odt] 4 mg PO Q8HR PRN #10 tab 03/18/18 Allergies Allergy/AdvReac Type Severity Reaction Status Date / Time cashew nut AdvReac MIGRAINES Verified 08/09/18 11:17 epinephrine AdvReac Unknown Verified 08/09/18 11:17 Review of Systems ROS Statement: Those systems with pertinent positive or pertinent negative responses have been documented in the HPI. ROS Other: All systems not noted in ROS Statement are negative. Past Medical History Past Medical History: Hyperlipidemia, Thyroid Disorder Additional Past Medical History / Comment(s): past fall-cracked 3 vertebre, chronic back pain, sciatica, past ovarian cysts,uti,past uterine fibroids, vertigo,arthritis hips, tailbone. head injury as child-fell of a horse."leaky aortic valve", early macular degeneration, hx pvc's, bronchits, seasonal allergies, rosacea. History of Any Multi-Drug Resistant Organisms: None Reported Past Surgical History: Bladder Surgery, Hysterectomy, Orthopedic Surgery Additional Past Surgical History / Comment(s): cardiac ablation/metal bar rt arm /carpal tunnel Past Anesthesia/Blood Transfusion Reactions: Motion Sickness Past Psychological History: Anxiety, Depression Smoking Status: Former smoker Past Alcohol Use History: Occasional Past Drug Use History: None Reported - Past Family History Mother Family Medical History: Deep Vein Thrombosis (DVT) Additional Family Medical History / Comment(s): arrythmia, fibroids,varicose veins, severe gluten allergies, ozzy masectomy d/t benign tumors Father Family Medical History: Cancer, Myocardial Infarction ([place]) Additional Family Medical History / Comment(s): lung cancer General Exam - General Exam Comments Initial Comments: General: The patient is awake and alert, in distress. Neck: The neck is supple, there is no tenderness or JVD. Cardiovascular: There is a regular rate and rhythm. No murmur, rub or gallop is appreciated. Respiratory: Lungs are clear to auscultation, respirations are non-labored, breath sounds are equal. No wheezes, stridor, rales, or rhonchi. Musculoskeletal: Patient does have superficial abrasion over the top of the right foot. She does have some mild tenderness to the lateral malleolus with increased tenderness in the ATFL. No specific bony tenderness down into the metatarsals. Does have tenderness over the second digit there is some lateral displacement at the DIP joint. Patient has mild tenderness over the right fibular head. No tenderness of the right hip. No bony tenderness in cervical, thoracic or lumbar spine. Mildly tender paravertebrally to the right side of the lower lumbar. Sensations intact. Pedal pulses 2+. Neurological: A&O x 3. CN II-XII intact, There are no obvious motor or sensory deficits. Coordination appears grossly intact. Speech is normal. Skin: Skin is warm and dry and no rashes or lesions are noted. Psychiatric: Cooperative, appropriate mood & affect, normal judgment. Limitations: no limitations Course Vital Signs 08/09/18 10:11 Temperature 97.8 F Pulse Rate 84 Respiratory 22 Rate Blood Pressure 113/74 O2 Sat by Pulse 98 Oximetry Procedures - Procedures Initial comment: Patient's second digit of the right foot was anesthetized locally with 1% lidocaine at the head of the metatarsal. Patient's toe is cold distally been estela taped to the first digit. Gauze were placed in between. Medical Decision Making - Medical Decision Making Patient's x-ray of the lumbar spine was reviewed and shows possible endplate compression formula L1. Patient is not tender in this area. No tenderness in the thoracic or lumbar spine. X-ray of the tib-fib does show a proximal fibula fracture. X-ray of the right ankle was negative. X-ray of the right foot does show a proximal phalanx fracture of the second digit. Patient second digit was reduced and estela taped to the first. Piece of gauze was placed in between to prevent any skin breakdown. Patient has been splinted in a knee immobilizer. She is advised nonweightbearing. She believes she has crutches at home but also given a prescription to use for crutches. She is advised following up with orthopedic doctor in the next 2 days. Advised return for any other concerns. Disposition Clinical Impression: Toe fracture, right, Fibula fracture, Fall Disposition: HOME SELF-CARE Condition: Good Instructions: Toe Fracture (ED) Additional Instructions: Please follow up with orthopedic doctor over the next 2 days. Please use knee immobilizer when up and moving around a non-weightbearing. Please return for any other concerns. Is patient prescribed a controlled substance at d/c from ED?: No Referrals: Gustavo Lopez III, MD [Primary Care Provider] - 1-2 days Zev Darden DO [Doctor of Osteopathic Medicine] - 1-2 days Time of Disposition: 11:57
[2018-08-09] MEDS ORDERED: HYDROcodone/APAP 5-325MG 1 EACH TAB PO STA (11:14)
--- NOTE | 2018-08-09 11:24 | XR ---
Lumbar spine HISTORY: Trauma and pain 3 views of the lumbar spine No comparisons Lumbar vertebral bodies show preserved alignment. Question some mild loss of vertebral body height L1 superior endplate, there is a slight kyphosis centered at T12-L1. Bone mineralization is reduced. Th ere is multilevel spondylosis. Sclerosis present in the posterior elements of the lower lumbar spine. Striated appearance at L1 likely represents hemangioma. Mild loss of disc height L5-S1. IMPRESSION: Difficult to exclude mild endplate compression deformity L1. Degenerative disc disease, o steopenia, facet arthropathy. No acute subluxation evident.
--- NOTE | 2018-08-09 11:28 | XR ---
Right ankle and right foot HISTORY: Trauma and pain 3 views of the right foot and 3 views of the right ankle submitted. Soft tissue swelling noted at the ankle. Transverse fracture of the distal metaphysis of the proximal phalanx of the second digit of the right foot shows minimal displacement, dorsal angulation. There i s associated soft tissue swelling. Varicosities suspected within the soft tissues. Bone mineralizatio n, joint spaces and alignment are maintained. There is a plantar calcaneal spur. Degenerative changes are present in the first digit metatarsophalangeal joint, interphalangeal joint. IMPRESSION: Fracture second digit.
--- NOTE | 2018-08-09 11:35 | XR ---
EXAMINATION TYPE: XR tibia fibula RT DATE OF EXAM: 08/09/2018 CLINICAL HISTORY: Fall with lateral right tibia/fibular pain TECHNIQUE: Two views of the right leg are obtained. COMPARISON: None. FINDINGS: There is a comminuted predominantly obliquely oriented overall nondisplaced fracture of the proximal fibula diaphysis with overlying soft tissue swelling. The most posterior fragment is displa rocio less than 1 mm. There is very minimal apex lateral angulation. There is tricompartmental mild to moderate arthropathy of the right knee with marginal osteophytes and medial compartment joint space n arrowing. IMPRESSION: Proximal fibular diaphysis comminuted overall nondisplaced acute fracture with overlying soft tissue swelling.
[2018-08-09] MEDS ORDERED: LIDOCAINE 1% INJ 10MG/ML (20 ML MDV) SQ STA (11:50)
[2018-08-09 12:56] VITALS: BP 111/79; PULSE 80; RESP 18
== END 2018-08-09 12:55 | disposition home or self-care (01) ==
LOC: EC 10:09
DX: S92.511A Displaced fracture of proximal phalanx of right lesser toe(s), initial encounter for closed fracture (principal); S82.831A Other fracture of upper and lower end of right fibula, initial encounter for closed fracture; S90.811A Abrasion, right foot, initial encounter; M54.5 Low back pain; E78.5 Hyperlipidemia, unspecified; E07.9 Disorder of thyroid, unspecified; M16.0 Bilateral primary osteoarthritis of hip; F32.9 Major depressive disorder, single episode, unspecified; F41.9 Anxiety disorder, unspecified; Z87.891 Personal history of nicotine dependence; Z88.8 Allergy status to other drugs, medicaments and biological substances; Z91.018 Allergy to other foods; Z79.1 Long term (current) use of non-steroidal anti-inflammatories (NSAID); Z79.82 Long term (current) use of aspirin; Z79.899 Other long term (current) drug therapy; Z86.79 Personal history of other diseases of the circulatory system; Z98.890 Other specified postprocedural states; W01.0XXA Fall on same level from slipping, tripping and stumbling without subsequent striking against object, initial encounter; Y93.89 Activity, other specified; Y92.009 Unspecified place in unspecified non-institutional (private) residence as the place of occurrence of the external cause
CPT/HCPCS: 99283; 28515; 72100; 73590; 73610; 73630; L1830 ×2; J2001

== ENCOUNTER → 2018-11-06 | Outpatient (CLI) | payer BC ==
--- NOTE | 2018-11-07 10:04 | BD ---
EXAMINATION TYPE: Axial Bone Density DATE OF EXAM: 11/06/2018 COMPARISON: NONE CLINICAL HISTORY: Postmenopausal female Height: 63.5 Weight: 204.1 FRAX RISK QUESTIONS: Alcohol (3 or more units per day): no Family History (Parent hip fracture): no Glucocorticoids (More than 3mos): no (Ex: prednisone, prednisolone, methylprednisolone, dexamethasone, and hydrocortisone). History of Fracture in Adulthood: yes Secondary Osteoporosis: 1. Type 1 Diabetes: no 2. Hyperthyroidism: no 3. Menopause before 45: no 4. Malnutrition: no 5. Chronic liver disease: no Rheumatoid Arthritis: Current Tobacco Use: no RISK FACTORS HISTORY OF: Spine Fracture: lumbar spine When: 2013 Surgery to Spine/Hip(right/left)/Wrist (right/left): right wrist 36 years ago- carpal tunnel Family History of Osteoporosis: yes Active: no Diet low in dairy products/other sources of calcium: yes Postmenopausal woman: around age 48 Lost more than 2 inches in height since high school: no MEDICATIONS: meloxicam Thyroid Medications: levothyroxine How Long: for many years Additional History: EXAM MEASUREMENTS: Bone mineral densitometry was performed using the [employer] System. Bone mineral density about the R hip (g/cm2): 0.830 Bone mineral density about the L hip (g/cm2): 0.856 T Score values are as follows: -----R Neck: -1.5 -----L Neck: -1.3 -----R Total: -0.8 -----L Total: -0.4 Bone mineral density : baseline Bone mineral density about the L Wrist (g/cm2): 0.589 T Score values are as follows: -----Dist. R+U: -0.3 -----Prox. R+U: -1.9 -----Radius total: -1.4 Bone mineral density : baseline IMPRESSION: Osteopenia (T Score between -2.5 and -1). There is slightly increased risk of fracture and the patient may be considered for treatment. Re-Screen 2-5 years. NOTE: T-SCORE=SD OF THE YOUNG ADULT MEAN.
== END | disposition home or self-care (01) ==
LOC: RADBDWWP 15:08
PROVIDERS: ATTEND Family Medicine
DX: M85.88 Other specified disorders of bone density and structure, other site (principal); Z87.81 Personal history of (healed) traumatic fracture
CPT/HCPCS: 77080

== ENCOUNTER → 2019-04-30 | Outpatient (CLI) | payer BC ==
--- NOTE | 2019-04-30 11:59 | CT ---
EXAMINATION TYPE: CT abdomen w con DATE OF EXAM: 04/30/2019 HISTORY: Disorder of Adrenal gland CT DLP: 1046.70mGycm Automated Exposure Control for Dose Reduction was Utilized. CONTRAST: CT scan of the abdomen is performed with IV Contrast, patient injected with 100 ml mL of Isovue 300. COMPARISON: CT abdomen and pelvis March 18, 2018 FINDINGS: LUNG BASES: No significant abnormality is appreciated. LIVER/GB: No significant abnormality is appreciated. PANCREAS: No significant abnormality is seen. SPLEEN: No significant abnormality is seen. ADRENALS: There is stable 1.7 cm left adrenal mass. This mass enhances to 51 Hounsfield units and was hes out to 18 Hounsfield units on 3 minute delay. Hounsfield units are [address] Fin dings are consistent with benign lipid rich adenoma KIDNEYS: Symmetric cortical medullary uptake and excretion without hydronephrosis seen bilaterally. BOWEL: Some diverticula in the left colon. No suspicious small or large bowel dilatation. Poor opacif ication of stomach makes evaluation of this level suboptimal. Oral contrast reaches level of the sple jessie flexure. LYMPH NODES: No greater than 1cm abdominal lymph nodes are appreciated. OSSEOUS STRUCTURES: Prominent hemangioma right L1 level redemonstrated. OTHER: No significant additional abnormality is seen. IMPRESSION: Stable size left adrenal mass with imaging characteristics consistent with benign Lipid rich adenoma.
== END | disposition home or self-care (01) ==
LOC: RADCTMAIN 09:45
PROVIDERS: ATTEND Family Medicine
DX: E27.8 Other specified disorders of adrenal gland (principal)
CPT/HCPCS: 74160; Q9967

== ENCOUNTER → 2019-06-18 | Outpatient (CLI) | payer BC ==
[2019-06-18 12:41] LABS: HCT 44.5 % (34.0-46.0); HGB 14.6 gm/dL (11.4-16.0); MCH 33.1 pg (25.0-35.0); MCHC 32.8 g/dL (31.0-37.0); MCV 100.7 fL (80.0-100.0); Mean Platelet Volume 7.5; Platelet Count 281 k/uL (150-450); Potassium 4.8 mmol/L (3.5-5.1); RBC 4.42 m/uL (3.80-5.40); RDW 12.2 % (11.5-15.5); WBC 5.5 k/uL (3.8-10.6)
== END | disposition home or self-care (01) ==
LOC: LABPAT 12:13
PROVIDERS: ATTEND Internal Medicine Interventional Cardiology
DX: Z01.812 Encounter for preprocedural laboratory examination (principal); R94.39 Abnormal result of other cardiovascular function study
CPT/HCPCS: 36415; 80051; 82565; 84520; 85027

== ENCOUNTER → 2019-06-19 | Day surgery (SDC) | payer BC ==
[2019-06-17 14:33] VITALS: BMI 34.7
[~2019-06-19] MED LIST changes: +ACETAMINOPHEN TAB 325 MG TAB ONE; +ACETAMINOPHEN TAB 325 MG TAB PO PRN; +ALPRAZolam 0.25 MG TAB PO PRN; +ALPRAZolam 0.5 MG TAB PO PRN; +ASPIRIN 325 MG TAB PO STA; +ATORVASTATIN 80 MG TAB PO STA; -BACITRACIN OINT 1 EACH PACKET TOPICAL ONE; +HEPARIN SODIUM 1,000 UN/ML (10ML VL) IV ONE; +HEPARIN SODIUM 1,000 UN/ML (10ML VL) ONE; +IOPAMIDOL-370 125ML BTL INJ ONE; +LIDOCAINE 1% INJ 10MG/ML (20 ML MDV) SQ ONE; +MIDAZOLAM 2 MG/2 ML VIAL IVP ONE; +NITROGLYCERIN SL TABS 0.4 MG TAB SUBLINGUAL PRN; +RX INFO: IV CONTRAST WAS GIVEN 1 EACH MISC MISCELLANE PRN; -SODIUM BICARB 4% 5 ML VIAL (0.48 MEQ/ML) ONE; +SODIUM CHLORIDE 0.9% 1,000 ML IV SCH; +SODIUM CHLORIDE 0.9% 1,000 ML in EMPTY BAG 1 BAG IV ONE; +VERAPAMIL 2.5 MG/ML 2 ML AMP ONE; +VERAPAMIL SYRINGE (5 MG/10 ML) INTRAARTER ONE
[2019-06-19 11:01] VITALS: RESP 18; TEMP 97.8
--- NOTE | 2019-06-19 13:54 | CC ---
CARDIAC CATHETERIZATION REPORT DATE OF SERVICE: 06/19/2019 PERFORMING PHYSICIAN: Alirio Pfeiffer MD. PROCEDURE PERFORMED: 1. Selective right and left coronary angiogram. 2. Left heart catheterization. INDICATION: This is a 59-year-old female patient with dyslipidemia, was experiencing chest discomfort and underwent a myocardial perfusion imaging stress test and that revealed reversible defect. Because of that, a heart catheterization was advised. APPROACH: Right radial artery. COMPLICATION: None. LEVEL OF SEDATION: Moderate with sedation length of 18 minutes. PROCEDURE DESCRIPTION: After obtaining an informed consent, the patient was brought to the cardiac dock or pier laborer. The right radial artery was cannulated using micropuncture technique and a micropuncture wire passed easily, then I placed a 5-Nauruan sheath. I did after that I give the patient 2 mg of verapamil IA and 10,000 units of heparin IV. Subsequently, selective right and left coronary angiogram achieved using JR4 and JL3.5 catheters. Left heart catheterization was performed using 5-Nauruan pigtail catheter. The procedure was completed without any complication. SELECTIVE CORONARY ANGIOGRAM: 1. The RCA is a moderate caliber vessel and it is a nondominant vessel. It appeared to be angiographically normal. 2. The left main is angiographically normal, it bifurcates into LCX and LAD. 3. The LCX is a large caliber vessel and it is a dominant vessel. It is angiographically normal. In the midportion, it gives rise into a large OM branch which seems to be normal and distally bifurcates into PDA and PLV branches, both appeared to be angiographically normal. 4. The LAD: The proximal LAD is normal. The mid LAD is normal and gives rise into a large diagonal branch which seems to be normal and the LAD distally is normal but does not reach the apex and becomes moderate caliber vessel. 5. HEMODYNAMICS: The LVEDP was 4 mmHg without significant gradient across the aortic valve. CONCLUSION: 1. Normal coronary angiogram. 2. Normal left ventricular end-diastolic pressure. POSTPROCEDURE MANAGEMENT: 1. Maximize medical treatment. 2. Follow up with the patient. MMODL / IJN: [id number] /
[2019-06-19 16:09] VITALS: BP 112/74; PULSE 65
== END ==
LOC: CATHCVL 10:27
PROVIDERS: ATTEND Internal Medicine Interventional Cardiology
DX: I20.0 Unstable angina (principal); I35.1 Nonrheumatic aortic (valve) insufficiency; I10 Essential (primary) hypertension; E78.2 Mixed hyperlipidemia; E78.00 Pure hypercholesterolemia, unspecified; F17.210 Nicotine dependence, cigarettes, uncomplicated; E66.3 Overweight; Z68.34 Body mass index [BMI] 34.0-34.9, adult; Z79.899 Other long term (current) drug therapy; Z79.82 Long term (current) use of aspirin; Z79.890 Hormone replacement therapy; Z88.8 Allergy status to other drugs, medicaments and biological substances; Z82.49 Family history of ischemic heart disease and other diseases of the circulatory system
CPT/HCPCS: 93458; C1769; C1894; J2250; J2001; J1644; Q9967

== ENCOUNTER 2019-07-08 07:06 | Day surgery (SDC) | payer BC ==
[2019-07-04 10:01] VITALS: BMI 34.3
[2019-07-08 07:22] VITALS: TEMP 97.9
[2019-07-08] MEDS ORDERED: LACTATED RINGERS 1,000 ML IV ONE (07:28)
[2019-07-08] MEDS ORDERED: PROPOFOL 10 MG/ML 20 ML VIAL IV ONE (07:47)
[2019-07-08] MEDS ORDERED: LIDOCAINE 1% INJ 10MG/ML (20 ML MDV) ONE (07:47)
--- NOTE | 2019-07-08 07:51 | P.GSHP ---
History of Present Illness H&P Date: 07/08/19 Chief Complaint: history of colon polyps 59-year-old female who presents today for colonoscopy. Patient has previous history of colon polyps. Her last colonoscopy was 8 years ago. this is a Past Medical History Past Medical History: Hyperlipidemia, Thyroid Disorder Additional Past Medical History / Comment(s): hx fall-cracked 3 vertebre, chronic back pain, sciatica, past ovarian cysts,uti,past uterine fibroids, vertigo,arthritis hips, tailbone. head injury as child-fell of a horse."leaky aortic valve", early macular degeneration, hx pvc's, bronchits, seasonal allergies, rosacea. History of Any Multi-Drug Resistant Organisms: None Reported Past Surgical History: Bladder Surgery, Cardiac Ablation, Heart Catheterization, Hysterectomy, Orthopedic Surgery Additional Past Surgical History / Comment(s): cardiac ablation, rt ulna shortening with metal bar rt carpal tunnel, D&C Past Anesthesia/Blood Transfusion Reactions: Motion Sickness Smoking Status: Former smoker - Past Family History Mother Family Medical History: Deep Vein Thrombosis (DVT) Additional Family Medical History / Comment(s): arrythmia, fibroids,varicose veins, severe gluten allergies, ozzy masectomy d/t benign tumors Father Family Medical History: Cancer, Myocardial Infarction ([place]) Additional Family Medical History / Comment(s): lung cancer Medications and Allergies Home Medications Medication Instructions Recorded Confirmed Type Albuterol Sulfate [Proventil Hfa] 2 puff INHALATION RT-Q6H PRN 09/04/14 07/08/19 History Gabapentin [Neurontin] 400 mg PO BID 09/04/14 07/08/19 History Loratadine [Claritin] 10 mg PO DAILY 09/04/14 07/08/19 History buPROPion HCL [Wellbutrin XL] 300 mg PO DAILY 09/04/14 07/08/19 History diphenhydrAMINE [Benadryl] 25 mg PO HS 09/04/14 07/08/19 History Baclofen [Lioresal] 10 mg PO TID PRN 12/17/17 07/08/19 History Meclizine [Antivert] 12.5 mg PO BID PRN 12/17/17 07/04/19 History Meloxicam [Mobic] 15 mg PO HS 12/17/17 07/04/19 History Nitroglycerin Sl Tabs [Nitrostat] 0.4 mg SUBLINGUAL Q5M PRN 12/17/17 07/04/19 History Vortioxetine Hydrobromide 5 mg PO DAILY 12/17/17 07/08/19 History [Trintellix] ALPRAZolam [Xanax] 0.5 mg PO DAILY PRN 08/09/18 07/08/19 History Atorvastatin [Lipitor] 40 mg PO HS 08/09/18 07/08/19 History Levothyroxine Sodium [Synthroid] 100 mcg PO DAILY 08/09/18 07/08/19 History Zaleplon [Sonata] 5 mg PO HS PRN 06/17/19 07/08/19 History traMADol HCL [Ultram] 50 mg PO DAILY PRN 06/17/19 07/08/19 History Ascorbic Acid [Vitamin C] 500 mg PO DAILY 07/04/19 07/08/19 History Calcium Carb/Vitamin D3/Vit K1 1 tab PO DAILY 07/04/19 07/08/19 History [Calcium-Vit D3-K1 650 mg Chew] Cholecalciferol [Vitamin D3 (25 2,000 unit PO DAILY 07/04/19 07/08/19 History Mcg = 1000 Iu)] Cyanocobalamin (Vitamin B-12) 1,000 mcg PO DAILY 07/04/19 07/08/19 History [Vitamin B-12] Multivitamins, Thera [Multivitamin 1 tab PO DAILY 07/04/19 07/04/19 History (formulary)] Allergies Allergy/AdvReac Type Severity Reaction Status Date / Time cashew nut AdvReac MIGRAINES Verified 07/08/19 07:23 epinephrine AdvReac Unknown Verified 07/08/19 07:23 Surgical - Exam Vital Signs Temp Pulse Resp BP Pulse Ox 97.9 F 68 17 112/60 96 07/08/19 07:21 07/08/19 07:21 07/08/19 07:21 07/08/19 07:21 07/08/19 07:21 - General well developed, well nourished, no distress - Eyes PERRL - ENT normal pinna - Neck no masses - Respiratory normal expansion - Cardiovascular Rhythm: regular - Abdomen Abdomen: soft, non tender Assessment and Plan Assessment: history of colon polyps. We'll perform colonoscopy.
[2019-07-08 08:24] VITALS: PULSE 62
[2019-07-08 08:35] VITALS: BP 106/69; RESP 18
--- NOTE | 2019-07-08 08:53 | P.OP ---
Date of Procedure: 07/08/19 Preoperative Diagnosis: history of colon polyps Postoperative Diagnosis: diverticulosis Procedure(s) Performed: colonoscopy Anesthesia: MAC Surgeon: Tu Fabian Pathology: none sent Condition: stable Disposition: PACU Description of Procedure: the patient's placed on the endoscopy table lateral position. She received IV sedation. Digital rectal exam was performed which revealed no abnormalities. The colonoscope was then placed patient anus passed rotator. The colonoscope could not be advanced the cecum due to tortuosity valve. Scope was withdrawn. A few scattered diverticula left colon. In the transverse colon as well. In the descending; and more extensive diverticulosis. There were no polyps seen in the colon. Sthe scope summer back the rectum. This appeared normal. The scope was then withdrawn for patient.
== END 2019-07-08 09:00 | disposition home or self-care (01) ==
LOC: ORWHC2ENDO 07:06
PROVIDERS: ATTEND Surgery
DX: Z12.11 Encounter for screening for malignant neoplasm of colon (principal); K57.30 Diverticulosis of large intestine without perforation or abscess without bleeding; Q43.9 Congenital malformation of intestine, unspecified; E78.5 Hyperlipidemia, unspecified; I10 Essential (primary) hypertension; J45.909 Unspecified asthma, uncomplicated; F32.9 Major depressive disorder, single episode, unspecified; E07.9 Disorder of thyroid, unspecified; H35.30 Unspecified macular degeneration; G89.29 Other chronic pain; Z86.010 Personal history of colon polyps; Z79.890 Hormone replacement therapy; Z79.899 Other long term (current) drug therapy; Z90.710 Acquired absence of both cervix and uterus; Z98.890 Other specified postprocedural states; Z88.8 Allergy status to other drugs, medicaments and biological substances; Z79.1 Long term (current) use of non-steroidal anti-inflammatories (NSAID); Z87.891 Personal history of nicotine dependence; Z82.49 Family history of ischemic heart disease and other diseases of the circulatory system; Z80.1 Family history of malignant neoplasm of trachea, bronchus and lung; Z87.440 Personal history of urinary (tract) infections; Z91.018 Allergy to other foods
CPT/HCPCS: J2001; J2704; G0105; 45378

== ENCOUNTER → 2019-07-16 | Outpatient (CLI) | payer BC ==
--- NOTE | 2019-07-17 13:34 | MM ---
Reason for exam: screening (asymptomatic). Last mammogram was performed 1 year and 3 months ago. History: Patient is postmenopausal. Family history of breast cancer in paternal aunt at age 60. Benign US biopsy breast VAD LT of the left breast, November 17, 2016. Physical Findings: A clinical breast exam by your physician is recommended on an annual basis and results should be correlated with mammographic findings. MG 3D Screening Mammo W/Cad Bilateral CC and MLO view(s) were taken. Prior study comparison: April 30, 2018, bilateral MG 3d screening mammo w/cad. May 21, 2017, left breast MG 3d diag mammo w/cad LT. The breast tissue is heterogeneously dense. This may lower the sensitivity of mammography. There are benign appearing oval circumscribed stable left retroareolar masses. Benign appearing bilateral calcifications. Left biopsy marker noted. ASSESSMENT: Benign, BI-RAD 2 RECOMMENDATION: Routine screening mammogram of both breasts in 1 year.
== END | disposition home or self-care (01) ==
LOC: RADMAMWWP 11:10
PROVIDERS: ATTEND Family Medicine
DX: Z12.31 Encounter for screening mammogram for malignant neoplasm of breast (principal)
CPT/HCPCS: 77063; 77067

== ENCOUNTER → 2019-11-07 | Outpatient (CLI) | payer BC ==
--- NOTE | 2019-11-07 12:17 | CT ---
EXAMINATION TYPE: CT abdomen pelvis wo con DATE OF EXAM: 11/07/2019 COMPARISON: 04/30/2019 HISTORY: Renal Stone CT DLP: 785.10 mGycm Automated exposure control for dose reduction was used. TECHNIQUE: Helical acquisition of images was performed from the lung bases through the pelvis. FINDINGS: LUNG BASES: Minimal peripheral subsegmental bilateral atelectasis. Moderate coronary artery calcifica tions. LIVER/GB: Unremarkable unenhanced morphology. No radiopaque calculi in the gallbladder. PANCREAS: No significant abnormality is seen. SPLEEN: No significant abnormality is seen. ADRENALS: Benign lipid rich adenoma has an average Hounsfield unit of 6 in the left adrenal gland hannah suring 1.4 cm in size. Right adrenal gland is unremarkable. KIDNEYS: Punctate 2 mm nonobstructing left lower pole renal calculus. No left-sided hydronephrosis. M oderate right hydroureteronephrosis is secondary to an obstructing mid ureteral 4 mm calculus. Phlebo lith is seen just adjacent to the right ureterovesicular junction. FREE AIR: No free air is visualized ADENOPATHY: No greater than 1 cm short axis lymph node in the abdomen or pelvis. REPRODUCTIVE ORGANS: Uterus appears surgically absent or significantly atrophic. OSSEOUS STRUCTURES: Punctate hyperdense areas in the pubic bones may be the result of prior trauma a s these appear metallic. Probable punctate bone island in the right femoral head and punctate probabl e bone islands of the pelvis. Very mild compression deformity of L3 and benign hemangioma of L1. Comp ression deformity of L3 is unchanged from the prior of 04/30/2019. Mild multilevel degenerative change of the spine. BOWEL: Multiple sigmoid diverticula and descending colonic diverticula are seen without pericolonic fat stranding. Few colonic diverticula in the ascending colon. Mild degree colonic fecal stasis. IMPRESSION: OBSTRUCTING 4 MM RIGHT MID URETERAL CALCULUS CREATING MODERATE RIGHT HYDROURETERONEPHROSIS. ADDITIONA L PUNCTATE NONOBSTRUCTING LEFT RENAL CALCULUS.
== END | disposition home or self-care (01) ==
LOC: RADCTMAIN 11:16
PROVIDERS: ATTEND Family Medicine
DX: N13.2 Hydronephrosis with renal and ureteral calculous obstruction (principal)
CPT/HCPCS: 74176

== ENCOUNTER 2019-11-10 15:03 | Inpatient (IN) | payer BC ==
[2019-11-10] MEDS ORDERED: NALOXONE 0.4 MG/ML 1 ML VIAL IV PRN (16:26)
[2019-11-10] MEDS ORDERED: HYDROmorphone 0.5 MG/0.5 ML SYRINGE IVP PRN (16:26)
[2019-11-10 17:08] LABS: Basophils % (A) 1 %; Eosinophils # (A) 0.4 k/uL (0-0.7); Eosinophils % (A) 6 %; HCT 39.4 % (34.0-46.0); HGB 13.2 gm/dL (11.4-16.0); Lymphocytes # (A) 1.5 k/uL (1.0-4.8); Lymphocytes % (A) 22 %; MCH 32.7 pg (25.0-35.0); MCHC 33.4 g/dL (31.0-37.0); MCV 97.8 fL (80.0-100.0); Mean Platelet Volume 7.8; Monocytes # (A) 0.5 k/uL (0-1.0); Monocytes % (A) 8 %; Neutrophils # (A) 3.9 k/uL (1.3-7.7); Neutrophils % (A) 59 %; Platelet Count 302 k/uL (150-450); RBC 4.03 m/uL (3.80-5.40); RDW 11.8 % (11.5-15.5); WBC 6.6 k/uL (3.8-10.6)
[2019-11-10 17:50] LABS: ALT 56 U/L (4-34); AST 43 U/L (14-36); African American GFR (CKD) >90 (>60 ml/min/1.73 sqM); Alkaline Phosphatase 131 U/L (38-126); Anion Gap 5 mmol/L; Blood Urea Nitrogen 19 mg/dL (7-17); Calcium 9.8 mg/dL (8.4-10.2); Carbon Dioxide 28 mmol/L (22-30); Chloride 105 mmol/L (98-107); Glucose 108 mg/dL (74-99); Non-African American GFR(CKD) >90 (>60 ml/min/1.73 sqM); Potassium 3.9 mmol/L (3.5-5.1); Sodium 138 mmol/L (137-145); Total Bilirubin 0.3 mg/dL (0.2-1.3); Total Protein 6.8 g/dL (6.3-8.2)
[2019-11-10] MEDS: SODIUM CHLORIDE 0.9% 1,000 ML IV SCH (18:01)
[2019-11-10] MEDS: HYDROcodone/APAP 5-325MG 1 EACH TAB PO PRN (18:30)
--- NOTE | 2019-11-10 20:54 | HP ---
HISTORY AND PHYSICAL DATE OF SERVICE: 11/10/2019 CHIEF COMPLAINTS: Loin to groin pain on the left side. HISTORY OF PRESENT ILLNESS: This 59-year-old woman with a past history of hypertension, hypothyroid, hyperlipidemia, history of vertebral fractures, history of bladder surgery, cardiac ablation, cardiac catheterization, history of anxiety, depression, history of nicotine dependence, being followed by Dr. Lopez in the outpatient setting. The patient not feeling well over the past several days. Initially, patient had renal stones on the left side apparently previously but currently for the last week, the patient had pain in the right renal angle which is radiating to the front. The patient given Flomax and antibiotics for 1 week. Because of lack of improvement, a CT scan of the abdomen and pelvis was performed as outpatient, which showed obstructing 4 mm right mid ureteral calculus creating moderate right hydronephrosis. The patient was directly admitted per Dr. Lopez's recommendations and the patient closely monitored at this time. There is no history of any fever, rigor or chills, headache, loss of consciousness, seizures at this time. PAST MEDICAL HISTORY: History of hyperlipidemia, hypothyroidism, history of cardiac ablation, cardiac catheterization, anxiety or depression. MEDICATIONS: Home medications are to be confirmed include: 1. Ultram 50 mg daily p.r.n. 2. Benadryl 2 mg q.h.s. 3. Wellbutrin XL 300 mg. 5. Trintellix 5 mg p.o. daily. 6. Nitrostat 0.4 sublingual q.5h p.r.n. 7. Multivitamins 1 p.o. daily. 8. Mobic 15 mg q.h.s. 9. Antivert 12.5 mg b.i.d. p.r.n. 10.Claritin 10 mg p.o. daily. 11.Synthroid 100 mcg p.o. daily. 12.Neurontin 400 mg p.o. b.i.d. 13.B12 1000 mcg p.o. daily. 14.Vitamin D3 2000 daily. 15.Vitamin D3 1 tablet p.o. daily. 16.Lioresal 10 mg p.o. t.i.d. p.r.n. 17.Lipitor 40 mg q.h.s. 18.Vitamin C 500 mg p.o. daily. 19.Proventil 2 puffs q.6h p.r.n. 20.Xanax 0.5 daily p.r.n. ALLERGIES: CASHEW NUTS. EPINEPHRINE. FAMILY HISTORY: History of DVT in the family. Severe gluten allergies. SOCIAL HISTORY: Previous history of smoking. Occasional alcohol intake. REVIEW OF SYSTEMS: ENT: No diminished vision. No diminished hearing. CARDIOVASCULAR: No angina or palpitations. RESPIRATORY: As mentioned earlier. GI: As mentioned earlier. as mentioned earlier. NERVOUS SYSTEM: No numbness or weakness. ALLERGY/IMMUNOLOGY: No asthma or hayfever. MUSCULOSKELETAL as mentioned earlier. HEMATOLOGY/ONCOLOGY: No history of anemia. ENDOCRINE: Hypothyroidism. CONSTITUTIONAL: As mentioned earlier. DERMATOLOGY: Negative. RHEUMATOLOGY: Negative. PSYCHIATRIC: As mentioned earlier. PHYSICAL EXAMINATION: Alert and oriented x3. Pulse is 80. Blood pressure 129/74, respirations 20, temperature is normal. HEENT: Conjunctivae normal. Oral mucosa moist. NECK is no jugular venous distention. No carotid bruit. No lymph node enlargement. CARDIOVASCULAR: S1-S2. No S3, no S4. RESPIRATIONS: Breath sounds diminished in the bases. No rhonchi. No crackles. ABDOMEN: Soft, mild diffuse tenderness in the right side, especially in the right renal angle present. No guarding. No rigidity. No mass palpable. No ascites. LEGS: No edema. No swelling. SKIN: No ulcer, rash or bleeding. Nervous system: Higher functions as mentioned earlier. Moves all 4 limbs. No focal deficits. JOINTS: No active deforming arthropathy. LABS: Pending at this time. ASSESSMENT: 1. Right renal angle pain and right ureteric stone 4 mm mid right segment. 2. Moderate right hydronephrosis with failure of outpatient treatment. 3. Hyperlipidemia. 4. Rule out urinary tract infection. 5. Hypothyroidism. 6. History of chronic back pain. 7. History of ovarian cyst in the past. 8. History of leaky aortic valve. 9. History of macular degeneration. 10.History of PVCs. 11.History of cardiac ablation. 12.History of cardiac catheterization. 13.History of anxiety, depression. 14.Remote history of nicotine dependence. 15.Obesity with body mass of 34.5. 16.Hypothyroidism. 17. . 18.FULL CODE. RECOMMENDATIONS AND DISCUSSION: This 59-year-old woman who presented with multiple complex medical issues, we will monitor the patient closely, continue the current medications, management and symptomatic treatment. We will resume the home medications. I would also recommend urology consultation. We will obtain basic labs and if it is abnormal, initiate antibiotics. Otherwise, DVT prophylaxis. Incentive spirometry. Proton pump inhibitors. Prognosis guarded because of multiple complex medical issues. Further recommendations to follow. Discussed with the patient. A copy of dictation being forwarded to Dr. Lopez who is the primary physician. MMTONYL / IJN: [id number] / EFREN
[2019-11-10] MEDS: HEPARIN SODIUM,PORCINE 5,000 UNIT/ML 1 ML VIAL SQ SCH (20:55)
[2019-11-10 23:04] LABS: Amorphous Sediment,Urine Rare /hpf; Appearance,Urine Cloudy (Clear); Bacteria,Urine Rare /hpf; Bilirubin,Urine Negative (Negative); Blood,Urine Negative (Negative); Color,Urine Yellow; Glucose,Urine (UA) Negative (Negative); Hyaline Casts,Urine 3 /lpf (0-2); Ketones,Urine Negative (Negative); Leukocyte Esterase,Urine Large (Negative); Mucus,Urine Occasional /hpf; Nitrite,Urine Negative (Negative); Protein,Urine Negative (Negative); RBC,Urine 8 /hpf (0-5); Specific Gravity,Urine 1.014 (1.001-1.035); Squamous Epithelial Cell,Urine 1 /hpf (0-4); Urobilinogen,Urine <2.0 mg/dL (<2.0); WBC,Urine 89 /hpf (0-5)
[2019-11-11] MEDS: HYDROcodone/APAP 5-325MG 1 EACH TAB PO PRN (01:30)
[2019-11-11] MEDS: SODIUM CHLORIDE 0.9% 1,000 ML IV SCH ×2 (05:27→16:43)
[2019-11-11 06:33] LABS: Basophils % (A) 1 %; Eosinophils # (A) 0.4 k/uL (0-0.7); Eosinophils % (A) 8 %; HCT 40.9 % (34.0-46.0); HGB 13.6 gm/dL (11.4-16.0); Lymphocytes # (A) 1.7 k/uL (1.0-4.8); Lymphocytes % (A) 31 %; MCH 32.7 pg (25.0-35.0); MCHC 33.2 g/dL (31.0-37.0); MCV 98.5 fL (80.0-100.0); Mean Platelet Volume 7.8; Monocytes # (A) 0.4 k/uL (0-1.0); Monocytes % (A) 7 %; Neutrophils # (A) 2.7 k/uL (1.3-7.7); Neutrophils % (A) 50 %; Platelet Count 311 k/uL (150-450); RBC 4.15 m/uL (3.80-5.40); RDW 11.8 % (11.5-15.5); WBC 5.3 k/uL (3.8-10.6)
[2019-11-11 06:51] LABS: African American GFR (CKD) >90 (>60 ml/min/1.73 sqM); Anion Gap 6 mmol/L; Blood Urea Nitrogen 17 mg/dL (7-17); Calcium 9.6 mg/dL (8.4-10.2); Carbon Dioxide 28 mmol/L (22-30); Chloride 105 mmol/L (98-107); Glucose 123 mg/dL (74-99); Non-African American GFR(CKD) >90 (>60 ml/min/1.73 sqM); Potassium 4.2 mmol/L (3.5-5.1); Sodium 139 mmol/L (137-145)
[2019-11-11] MEDS: PANTOPRAZOLE 40 MG TABLET PO SCH ×2 (07:29→07:30)
[2019-11-11] MEDS: HEPARIN SODIUM,PORCINE 5,000 UNIT/ML 1 ML VIAL SQ SCH ×2 (07:29→20:22)
--- NOTE | 2019-11-11 09:27 | P.GSCN ---
History of Present Illness Consult date: 11/11/19 Reason for Consult: Right ureteral calculus Requesting physician: Eulogio Morataya History of present illness: The patient is a 59-year-old white female with a history of urolithiasis. She underwent ureteroscopic removal of a 6 mm left proximal ureteral calculus in February 2018. She now presents with a several day history of right renal colic. Specifically, the pain is located in the right flank and occasionally radiates to the right lower quadrant. She describes the pain as being intermittently sharp and severe. A computed tomography scan on November 06 showed evidence of right hydronephrosis due to a 4 mm right proximal ureteral calculus. Her only history of UTIs is in the remote past. Review of Systems - Constitutional Reports chills, Denies fever - Gastrointestinal Reports nausea, Denies vomiting - Genitourinary Genitourinary: Reports flank pain, Reports kidney stones, Denies dysuria, Denies hematuria Past Medical History Past Medical History: Hyperlipidemia, Thyroid Disorder Additional Past Medical History / Comment(s): hx fall-cracked 3 vertebre, chronic back pain, sciatica, past ovarian cysts,uti,past uterine fibroids, vertigo,arthritis hips & tailbone. head injury as child-fell of a horse."leaky aortic valve", early macular degeneration, hx pvc's, bronchitis, seasonal allergies, rosacea.,kidney stones History of Any Multi-Drug Resistant Organisms: None Reported Past Surgical History: Bladder Surgery, Cardiac Ablation, Heart Catheterization, Hysterectomy, Orthopedic Surgery Additional Past Surgical History / Comment(s): cardiac ablation, rt ulna shortening with metal bar, rt carpal tunnel, D&C, kidney stone with stent put in 2018 Past Anesthesia/Blood Transfusion Reactions: Motion Sickness Past Psychological History: Anxiety, Depression Smoking Status: Former smoker Past Alcohol Use History: Occasional Additional Past Alcohol Use History / Comment(s): started smoking in 1972( off and on) until she quit in 1988 smoked 1 ppd. Past Drug Use History: None Reported Additional Drug Use History / Comment(s): as teen smoked marijuana - Past Family History Mother Family Medical History: Deep Vein Thrombosis (DVT) Additional Family Medical History / Comment(s): arrythmia, fibroids,varicose veins, severe gluten allergies, ozzy mastectomy d/t benign tumors Father Family Medical History: Cancer, Myocardial Infarction ([place]) Additional Family Medical History / Comment(s): lung cancer Medications and Allergies Home Medications Medication Instructions Recorded Confirmed Type Albuterol Sulfate [Proventil Hfa] 2 puff INHALATION RT-Q6H PRN 09/04/14 11/10/19 History Gabapentin [Neurontin] 400 mg PO TID PRN 09/04/14 11/10/19 History Loratadine [Claritin] 10 mg PO DAILY 09/04/14 11/10/19 History buPROPion HCL [Wellbutrin XL] 300 mg PO DAILY 09/04/14 11/10/19 History diphenhydrAMINE [Benadryl] 25 mg PO HS 09/04/14 11/10/19 History Baclofen [Lioresal] 10 mg PO TID PRN 12/17/17 11/10/19 History Meclizine [Antivert] 12.5 mg PO BID PRN 12/17/17 11/10/19 History Meloxicam [Mobic] 15 mg PO HS 12/17/17 11/10/19 History Nitroglycerin Sl Tabs [Nitrostat] 0.4 mg SUBLINGUAL Q5M PRN 12/17/17 11/10/19 History Vortioxetine Hydrobromide 5 mg PO DAILY 12/17/17 11/10/19 History [Trintellix] ALPRAZolam [Xanax] 0.5 mg PO DAILY PRN 08/09/18 11/10/19 History Levothyroxine Sodium [Synthroid] 100 mcg PO DAILY 08/09/18 11/10/19 History Zaleplon [Sonata] 5 mg PO HS PRN 06/17/19 11/10/19 History traMADol HCL [Ultram] 50 mg PO DAILY PRN 06/17/19 11/10/19 History Ascorbic Acid [Vitamin C] 500 mg PO DAILY 07/04/19 11/10/19 History Cholecalciferol [Vitamin D3 (25 2,000 unit PO DAILY 07/04/19 11/10/19 History Mcg = 1000 Iu)] Multivitamins, Thera [Multivitamin 1 tab PO DAILY 07/04/19 11/10/19 History (formulary)] Calcium Carbonate [Calcium] 600 mg PO DAILY 11/10/19 11/10/19 History Allergies Allergy/AdvReac Type Severity Reaction Status Date / Time cashew nut AdvReac MIGRAINES Verified 11/10/19 17:10 epinephrine AdvReac Unknown Verified 11/10/19 17:10 Surgical - Exam Vital Signs Temp Pulse Resp BP Pulse Ox 98.2 F 77 16 119/73 95 11/10/19 16:37 11/10/19 16:37 11/10/19 16:37 11/10/19 16:37 11/10/19 16:37 - General well developed, well nourished, moderate distress - Neck no masses, trachea midline - Respiratory normal respiratory effort - Abdomen Abdomen: soft, tender (mild RLQ tenderness), no masses, no guarding, no rigid, no rebound, no distended - Psychiatric oriented to time, oriented to person, oriented to place, speech is normal, memory intact Results - Labs 11/11/19 06:15 11/11/19 06:15 Abnormal Lab Results - Last 24 Hours (Table) 11/10/19 11/10/19 11/11/19 Range/Units 16:51 19:30 06:15 BUN 19 H (7-17) mg/dL Glucose 108 H 123 H (74-99) mg/dL AST 43 H (14-36) U/L ALT 56 H (4-34) U/L Alkaline Phosphatase 131 H (38-126) U/L Urine Appearance Cloudy H (Clear) Ur Leukocyte Esterase Large H (Negative) Urine RBC 8 H (0-5) /hpf Urine WBC 89 H (0-5) /hpf Amorphous Sediment Rare H (None) /hpf Urine Bacteria Rare H (None) /hpf Hyaline Casts 3 H (0-2) /lpf Urine Mucus Occasional H (None) /hpf Diabetes panel 11/10/19 11/11/19 Range/Units 16:51 06:15 Sodium 138 139 (137-145) mmol/L Potassium 3.9 4.2 (3.5-5.1) mmol/L Chloride 105 105 (98-107) mmol/L Carbon Dioxide 28 28 (22-30) mmol/L BUN 19 H 17 (7-17) mg/dL Creatinine 0.72 0.71 (0.52-1.04) mg/dL Glucose 108 H 123 H (74-99) mg/dL Calcium 9.8 9.6 (8.4-10.2) mg/dL AST 43 H (14-36) U/L ALT 56 H (4-34) U/L Alkaline Phosphatase 131 H (38-126) U/L Total Protein 6.8 (6.3-8.2) g/dL Albumin 4.0 (3.5-5.0) g/dL Calcium panel 11/10/19 11/11/19 Range/Units 16:51 06:15 Calcium 9.8 9.6 (8.4-10.2) mg/dL Albumin 4.0 (3.5-5.0) g/dL Pituitary panel 11/10/19 11/11/19 Range/Units 16:51 06:15 Sodium 138 139 (137-145) mmol/L Potassium 3.9 4.2 (3.5-5.1) mmol/L Chloride 105 105 (98-107) mmol/L Carbon Dioxide 28 28 (22-30) mmol/L BUN 19 H 17 (7-17) mg/dL Creatinine 0.72 0.71 (0.52-1.04) mg/dL Glucose 108 H 123 H (74-99) mg/dL Calcium 9.8 9.6 (8.4-10.2) mg/dL Adrenal panel 11/10/19 11/11/19 Range/Units 16:51 06:15 Sodium 138 139 (137-145) mmol/L Potassium 3.9 4.2 (3.5-5.1) mmol/L Chloride 105 105 (98-107) mmol/L Carbon Dioxide 28 28 (22-30) mmol/L BUN 19 H 17 (7-17) mg/dL Creatinine 0.72 0.71 (0.52-1.04) mg/dL Glucose 108 H 123 H (74-99) mg/dL Calcium 9.8 9.6 (8.4-10.2) mg/dL Total Bilirubin 0.3 (0.2-1.3) mg/dL AST 43 H (14-36) U/L ALT 56 H (4-34) U/L Alkaline Phosphatase 131 H (38-126) U/L Total Protein 6.8 (6.3-8.2) g/dL Albumin 4.0 (3.5-5.0) g/dL - Imaging CT scan - abdomen: report reviewed, image reviewed Assessment and Plan (1) Calculus of ureter Current Visit: Yes Status: Acute Code(s): N20.1 - CALCULUS OF URETER SNOMED Code(s): 65031245 (2) Hydronephrosis with obstructing calculus Current Visit: Yes Status: Acute Code(s): N13.2 - HYDRONEPHROSIS WITH RENAL AND URETERAL CALCULOUS OBSTRUCTION SNOMED Code(s): 05954316 Plan: I had a lengthy discussion with the patient regarding her 4 mm right proximal ureteral calculus. She states that her symptoms have been intractable, and she thus prefers ureteroscopic removal of the calculus over medical expulsion therapy. She underwent left ureteroscopy with laser lithotripsy in February 2018, and thus she is familiar with this procedure. She understands potential risks to include anesthesia, infection, inability to remove the calculus, and ureteral injury. She is also aware of the need for a ureteral stent postoperatively. Time with Patient: Greater than 30
[2019-11-11] MEDS ORDERED: TEMAZEPAM 15 MG CAP PO PRN (12:15)
[2019-11-11] MEDS ORDERED: IV FLUID CONTINUATION 1,000 ML IV ONE (13:08)
[2019-11-11] MEDS ORDERED: ONDANSETRON 4 MG/2 ML VIAL IVP ONE (13:14)
[2019-11-11] MEDS ORDERED: MIDAZOLAM 2 MG/2 ML VIAL ONE (14:25)
[2019-11-11] MEDS ORDERED: GLYCOPYRROLATE 0.2 MG/ML 2 ML VIAL ONE (14:25)
[2019-11-11] MEDS ORDERED: fentaNYL (PF) 50 MCG/ML 2 ML AMP ONE (14:25)
[2019-11-11] MEDS ORDERED: PROPOFOL 10 MG/ML 20 ML VIAL IV ONE (14:25)
[2019-11-11] MEDS ORDERED: SUCCINYLCHOLINE CHLORIDE 100 MG/5 ML SYR IV ONE (14:25)
[2019-11-11] MEDS ORDERED: LACTATED RINGERS 1,000 ML IV ONE (15:35)
--- NOTE | 2019-11-11 15:38 | P.PN ---
Subjective Progress Note Date: 11/11/19 Principal diagnosis: 11/11/2019 This is a 59-year-old female who was recently admitted for 4 mm right midureteral calculus with some moderate right hydronephrosis and is being clos rosario monitored. Patient was recently on oral antibiotics along with Flomax and continue to worsen. A computed tomography scan of the abdomen and pelvis was performed in the outpatient setting and patient was notified of these results from Dr. Lopez's office. Patient was sent here for admission with urology evaluation. Patient seen and evaluated by Dr. Vaz this morning and patient will be undergoing ureteroscopy with possible ureteral stent of the right side. Will await report. Patient continues to have some right-sided CVA tenderness on palpation and states that it feels better when laying down. Patient is nothing by mouth for the procedure this afternoon and will resume diet. Will repeat a.m. labs. Flomax will be reinitiated. Will continue to monitor closely. Review of systems: Constitutional: No reports of fevers, reports chills, reports generalized fatigue Cardiovascular: No reports of chest pain or palpitations Respiratory: No reports of shortness of breath or cough GI: No reports of nausea, vomiting, or diarrhea. : No reports of dysuria or retention, reports right-sided CVA tenderness Nervous system: No reports of weakness or numbness Active Medications Hydrocodone Bitart/Acetaminophen (Sherwood 5-325) 1 each PO Q4HR PRN PRN Reason: Moderate Pain Last Admin: 11/11/19 01:30 Dose: 1 each Documented by: Heparin Sodium (Porcine) (Heparin) 5,000 unit SQ Q12HR [facility] Last Admin: 11/11/19 07:29 Dose: 5,000 unit Documented by: Hydromorphone HCl (Dilaudid) 0.5 mg IVP Q4HR PRN PRN Reason: Severe Pain Sodium Chloride (Saline 0.9%) 1,000 mls @ 75 mls/hr IV .[id number] [facility] Last Admin: 11/11/19 05:27 Dose: 75 mls/hr Documented by: Naloxone HCl (Narcan) 0.2 mg IV Q2M PRN PRN Reason: Opioid Reversal Pantoprazole Sodium (Protonix) 40 mg PO [id number]-[id number] [facility] Last Admin: 11/11/19 07:30 Dose: Not Given Documented by: Temazepam (Restoril) 15 mg PO HS PRN PRN Reason: Insomnia Objective - Vital Signs Vital signs: Vital Signs Temp 98.0 F 11/11/19 13:10 Pulse 71 11/11/19 13:10 Resp 18 11/11/19 13:10 BP 158/83 11/11/19 13:10 Pulse Ox 99 11/11/19 13:10 Intake & Output 11/10/19 11/11/19 11/11/19 18:59 06:59 18:59 Intake Total 900 350 Balance 900 350 Weight 88.451 kg Intake: IV 350 Intake, IV Titration 900 Amount Sodium Chloride 0.9% 1, 900 000 ml @ 75 mls/hr IV . [id number] [facility] Rx#:[id number] Other: Voiding Method Toilet Toilet - Exam Gen: This is a 59-year-old female lying in bed, awake, alert and oriented 3, well-developed, well-nourished. Temp is 97.9F, pulse is 65, respirations are 18, blood pressure is 138/64, oxygen saturation is 96% on room air. HEENT: Head is atraumatic, normocephalic. Pupils equal, round. Sclerae is anicteric. NECK: Supple. No JVD. No lymphadenopathy. No thyromegaly. LUNGS: Diminished breath sounds at the bases with no wheezing or rhonchi noted. No intercostal retractions. HEART: S1, S2 are present, no murmur noted. ABDOMEN: Soft. Bowel sounds are present. No masses. No tenderness. Right sided CVA tenderness noted on palpation EXTREMITIES: No pedal edema. No calf tenderness. NEUROLOGICAL: Patient is awake, alert and oriented x3. Cranial nerves 2 through 12 are grossly intact. - Labs CBC & Chem 7: 11/11/19 06:15 11/11/19 06:15 Labs: Abnormal Lab Results - Last 24 Hours (Table) 11/10/19 11/10/19 11/11/19 Range/Units 16:51 19:30 06:15 BUN 19 H (7-17) mg/dL Glucose 108 H 123 H (74-99) mg/dL AST 43 H (14-36) U/L ALT 56 H (4-34) U/L Alkaline Phosphatase 131 H (38-126) U/L Urine Appearance Cloudy H (Clear) Ur Leukocyte Esterase Large H (Negative) Urine RBC 8 H (0-5) /hpf Urine WBC 89 H (0-5) /hpf Amorphous Sediment Rare H (None) /hpf Urine Bacteria Rare H (None) /hpf Hyaline Casts 3 H (0-2) /lpf Urine Mucus Occasional H (None) /hpf Assessment and Plan Assessment: Right renal angle pain and right ureteral stone 4 mm mid right segment Moderate right hydronephrosis with failure of outpatient treatment Hyperlipidemia rule out urinary tract infection Hypothyroidism History of chronic back pain History of ovarian cyst in the past History of week he aortic valve History of macular degeneration History of PVCs history of cardiac ablation history of cardiac catheterization history of anxiety, depression Remote history of nicotine dependence Obesity with a body mass index of 34.5 Hypothyroidism Full code Recommendations and discussion: Recommend to continue current medications, management, and symptomatic treat ment. Patient was seen and evaluated by urology and is scheduled to undergo right-sided ureteral stent this afternoon. Will await report. Due to multiple complex medical issues, prognosis is guarded. The recommendations to follow. Will continue to monitor closely.
--- NOTE | 2019-11-11 15:53 | P.OP ---
Date of Procedure: 11/11/19 Preoperative Diagnosis: Regular ureteral calculus Postoperative Diagnosis: Same Procedure(s) Performed: Cystoscopy, right ureteroscopy with Holmium laser lithotripsy, right ureteral stent insertion Anesthesia: ADRIELA Surgeon: Ben Vaz Estimated Blood Loss (ml): 0 IV fluids (ml): 700 Pathology: none sent Condition: stable Disposition: PACU Indications for Procedure: The patient is a 59-year-old white female admitted with intractable right renal colic due to a 4 mm right proximal ureteral calculus. She has elected to undergo ureteroscopic removal of the calculus. Operative Findings: Impacted right proximal ureteral calculus, incompletely fragmented. Description of Procedure: The patient was taken to the operating room and placed in the dorsolithotomy position, with legs supported in Jordan stirrups. The external genitalia was prepped and draped sterilely. The 30 lens was used to introduce the 22-English Stortz cystoscopic sheath through the urethra and into the bladder under direct vision. The bladder was examined in its entirety. Both ureteral orifices were normal anatomic location and configuration. No tumors or foreign bodies were seen. A 10-English cone-tipped catheter was passed through the right ureteral orifice to dilate the orifice. The [employer] semirigid ureteroscope was advanced into the bladder, and the right ureteral orifice was cannulated. The ureteroscope was slowly advanced under direct vision, until the proximal ureter became narrowed. The ureteroscope was removed, and the Olympus flexible ureteroscope was advanced into the bladder. The right ureteral orifice was cannulated, and the ureteroscope was slowly advanced under direct vision. Again, the ureteroscope could not be passed beyond the area of narrowing, and therefore a 0.035 inch Glidewire was passed through the ureteroscope and advanced up to the right renal pelvis. The ureteroscope was advanced over the wire, and the calculus was identified. The ureteroscope was removed, leaving t he Glidewire and place, and the ureteroscope was then advanced alongside the Glidewire, up to the calculus. The 200 micron Holmium laser probe was passed through the ureteroscope, and lithotripsy was performed. Lithotripsy was very difficult due to the fact that the calculus was impacted. The patient on that could be fragmented was not dense, appearing to be composed of calcium oxalate dihydrate. Ultimately, visualization of the calculus was lost due to positioning of the ureteroscope and attempts to visualize the calculus were unsuccessful. Therefore, the ureteroscope was removed and the Glidewire was backloaded into the cystoscope, which was passed into the bladder. A 24 cm, 4.8-English double-J ureteral stent was placed over the wire. Proper stent positioning was verified fluoroscopically and endoscopically. The bladder was emptied and the cystoscope removed. The patient tolerated the procedure well and was taken to the recovery room in stable condition. Plan: Cystoscopy, right ureteral stent removal, right ureteroscopy with laser lithotripsy in 2-3 weeks. [facility] Report: Procedure Acuity: Urgent Stone Size and Location: 4 mm, right proximal ureter Ureteral Dilation: No Ureteral Access Sheath Used: No Stone Sent for Analysis: No All Stones/Fragments Were Removed with a Basket: No Complications: No Preoperative Antibiotics Given: Yes Stent Placed: Yes If Stent Placed, Was String Left Attached: N/A If Stent Placed, When is it to be Removed: 2-3 weeks Discharge Medications: None
--- NOTE | 2019-11-11 16:08 | FL ---
EXAMINATION TYPE: FL guidance operating room DATE OF EXAM: 11/11/2019 FLUOROSCOPY Fluoroscopy time of 9 seconds was used during right-sided cystoscopy and stent placement. 1 image/s document/s the procedure.
[2019-11-11] MEDS: TAMSULOSIN 0.4 MG CAP.ER.24H PO SCH (17:15)
[2019-11-11 21:06] VITALS: RESP 18
[2019-11-12] MEDS: HYDROcodone/APAP 5-325MG 1 EACH TAB PO PRN (00:03)
[2019-11-12] MEDS: TAMSULOSIN 0.4 MG CAP.ER.24H PO SCH (08:50)
[2019-11-12] MEDS: PANTOPRAZOLE 40 MG TABLET PO SCH (08:50)
[2019-11-12] MEDS: HEPARIN SODIUM,PORCINE 5,000 UNIT/ML 1 ML VIAL SQ SCH (08:50)
[2019-11-12] MEDS: SODIUM CHLORIDE 0.9% 1,000 ML IV SCH (08:51)
[2019-11-12 11:30] VITALS: BP 119/63; PULSE 63; TEMP 96.3
--- NOTE | 2019-11-13 10:44 | P.DS ---
Providers Date of admission: 11/10/19 15:50 Expected date of discharge: 11/13/19 Attending physician: Eulogio Morataya Consults: 11/10/19 16:43 Consult Physician Routine Consulting Provider: Ben Vaz Consult Reason/Comments: kidney stone, hydronephrosis Do you want consulting provider notified?: Yes Primary care physician: Gustavo Lopez [facility] Course: Final diagnosis Right renal angle pain and right ureteral stone 4 mm mid right segment Moderate right hydronephrosis with failure of outpatient treatment Hyperlipidemia rule out urinary tract infection Hypothyroidism History of chronic back pain History of ovarian cyst in the past History of week he aortic valve History of macular degeneration History of PVCs history of cardiac ablation history of cardiac catheterization history of anxiety, depression Remote history of nicotine dependence Obesity with a body mass index of 34.5 Hypothyroidism Full code Discharge disposition Patient is being discharged in a stable condition with guarded prognosis to home and will follow-up with Dr. Lopez in the outpatient setting. She will also follow-up with urology Dr. Vaz in 2-3 weeks. Patient will continue on a shor t course of oral antibiotics in the form of Ceftin twice daily for the next 3 days along with Flomax. Total time taken is 35 minutes. History of present illness This is a 59-year-old female who was recently admitted with right side CVA tenderness and was found to have a 4 mm ureteral stone with failed outpatient was being closely monitored. Patient was on Bactrim Flomax with no improvement and sent in by Dr. Lopez's office for urology consult. Patient was initiated on ceftriaxone and will continue with oral Ceftin in the outpatient setting for 3 days along with Flomax. Patient was seen and evaluated by urology Dr. Vaz and underwent right ureteroscopy with ureteral stent placement and attempted stone retrieval with no success. Patient will follow-up in the outpatient setting for stent removal and lithotripsy at that point. Patient states her right-sided CVA tenderness has gotten better and is urinating with no difficulties. She did notice a slight pink tint to her urine but denies any dysuria retention. Currently no reports of chest pain, shortness of breath, or palpitations. Patient is afebrile. No reports of nausea or vomiting and patient is tolerating diet. On exam vital signs are stable. Temp is 96.3F, pulse is 63, respirations are 18, blood pressure is 119/63, oxygen saturation is 96% on room air. Cardio S1, S2 are present. Respiratory system shows clear to auscultation. Abdomen is soft and nontender. Right side CVA tenderness is minimal. Nervous system shows no focal deficits. Please refer to medication reconciliation sheet for a list of medications. Patient Condition at Discharge: Stable Plan - Discharge Summary Discharge Rx Participant: Yes New Discharge Prescriptions: New Cefuroxime Axetil [Ceftin] 500 mg PO BID 3 Days #6 tab Tamsulosin [Flomax] 0.4 mg PO PC-BRKFST 30 Days #30 cap.er.24h HYDROcodone/APAP 5-325MG [[place] 5-325] 1 each PO Q4HR PRN #12 tab PRN Reason: Moderate Pain Ondansetron Odt [Zofran Odt] 4 mg PO Q8HR PRN #8 tab PRN Reason: Nausea Continue buPROPion HCL [Wellbutrin XL] 300 mg PO DAILY Loratadine [Claritin] 10 mg PO DAILY Albuterol Sulfate [Proventil Hfa] 2 puff INHALATION RT-Q6H PRN PRN Reason: Dyspnea diphenhydrAMINE [Benadryl] 25 mg PO HS Gabapentin [Neurontin] 400 mg PO TID PRN PRN Reason: Pain Vortioxetine Hydrobromide [Trintellix] 5 mg PO DAILY Nitroglycerin Sl Tabs [Nitrostat] 0.4 mg SUBLINGUAL Q5M PRN PRN Reason: Chest Pain Meclizine [Antivert] 12.5 mg PO BID PRN PRN Reason: Vertigo Baclofen [Lioresal] 10 mg PO TID PRN PRN Reason: Pain Levothyroxine Sodium [Synthroid] 100 mcg PO DAILY ALPRAZolam [Xanax] 0.5 mg PO DAILY PRN PRN Reason: Anxiety traMADol HCL [Ultram] 50 mg PO DAILY PRN PRN Reason: Pain Zaleplon [Sonata] 5 mg PO HS PRN PRN Reason: Insomnia Cholecalciferol [Vitamin D3 (25 Mcg = 1000 Iu)] 2,000 unit PO DAILY Multivitamins, Thera [Multivitamin (formulary)] 1 tab PO DAILY Ascorbic Acid [Vitamin C] 500 mg PO DAILY Calcium Carbonate [Calcium] 600 mg PO DAILY Discontinued Meloxicam [Mobic] 15 mg PO HS Discharge Medication List Albuterol Sulfate [Proventil Hfa] 2 puff INHALATION RT-Q6H PRN 09/04/14 [History] Gabapentin [Neurontin] 400 mg PO TID PRN 09/04/14 [History] Loratadine [Claritin] 10 mg PO DAILY 09/04/14 [History] buPROPion HCL [Wellbutrin XL] 300 mg PO DAILY 09/04/14 [History] diphenhydrAMINE [Benadryl] 25 mg PO HS 09/04/14 [History] Baclofen [Lioresal] 10 mg PO TID PRN 12/17/17 [History] Meclizine [Antivert] 12.5 mg PO BID PRN 12/17/17 [History] Nitroglycerin Sl Tabs [Nitrostat] 0.4 mg SUBLINGUAL Q5M PRN 12/17/17 [History] Vortioxetine Hydrobromide [Trintellix] 5 mg PO DAILY 12/17/17 [History] ALPRAZolam [Xanax] 0.5 mg PO DAILY PRN 08/09/18 [History] Levothyroxine Sodium [Synthroid] 100 mcg PO DAILY 08/09/18 [History] Zaleplon [Sonata] 5 mg PO HS PRN 06/17/19 [History] traMADol HCL [Ultram] 50 mg PO DAILY PRN 06/17/19 [History] Ascorbic Acid [Vitamin C] 500 mg PO DAILY 07/04/19 [History] Cholecalciferol [Vitamin D3 (25 Mcg = 1000 Iu)] 2,000 unit PO DAILY 07/04/19 [History] Multivitamins, Thera [Multivitamin (formulary)] 1 tab PO DAILY 07/04/19 [History] Calcium Carbonate [Calcium] 600 mg PO DAILY 11/10/19 [History] Cefuroxime Axetil [Ceftin] 500 mg PO BID 3 Days #6 tab 11/12/19 [Rx] HYDROcodone/APAP 5-325MG [[place] 5-325] 1 each PO Q4HR PRN #12 tab 11/12/19 [Rx] Ondansetron Odt [Zofran Odt] 4 mg PO Q8HR PRN #8 tab 11/12/19 [Rx] Tamsulosin [Flomax] 0.4 mg PO PC-BRKFST 30 Days #30 cap.er.24h 11/12/19 [Rx] Follow up Appointment(s)/Referral(s): Ben Vaz MD [STAFF PHYSICIAN] - 2 Weeks (Office will contact you for follow up appointment) Gustavo Lopez III, MD [Primary Care Provider] - 11/14/19 10:00 am (This will be a videochat phone call no in office visits at this time.) Patient Instructions/Handouts: Cefuroxime (By mouth), Hydrocodone/Acetaminophen (By mouth), Ondansetron (By mouth), Tamsulosin (By mouth) Activity/Diet/Wound Care/Special Instructions: Activity Limited until follow-up Continue current diet Continue with antibiotics until finished Follow-up with primary care provider upon discharge Follow-up with urology in 2-3 weeks Continue taking Flomax Discharge Disposition: HOME SELF-CARE
== END 2019-11-12 12:50 | disposition home or self-care (01) | DRG 661 ==
LOC: 5NMEDONC 15:50
PROVIDERS: ADMIT Hospitalist; ATTEND Hospitalist
PROC: 0TF68ZZ Fragmentation in Right Ureter, Via Natural or Artificial Opening Endoscopic (ICD-10-PCS; principal; 2019-11-10)
PROC: 0T768DZ Dilation of Right Ureter with Intraluminal Device, Via Natural or Artificial Opening Endoscopic (ICD-10-PCS; principal; 2019-11-10)
DX: N13.2 Hydronephrosis with renal and ureteral calculous obstruction (principal); E03.9 Hypothyroidism, unspecified; I10 Essential (primary) hypertension; E78.5 Hyperlipidemia, unspecified; H35.30 Unspecified macular degeneration; F41.9 Anxiety disorder, unspecified; F32.9 Major depressive disorder, single episode, unspecified; G89.29 Other chronic pain; M54.40 Lumbago with sciatica, unspecified side; M19.90 Unspecified osteoarthritis, unspecified site; E66.9 Obesity, unspecified; Z68.34 Body mass index [BMI] 34.0-34.9, adult; Z79.890 Hormone replacement therapy; Z79.1 Long term (current) use of non-steroidal anti-inflammatories (NSAID); Z79.899 Other long term (current) drug therapy; Z87.442 Personal history of urinary calculi; Z87.42 Personal history of other diseases of the female genital tract; Z87.891 Personal history of nicotine dependence; Z87.440 Personal history of urinary (tract) infections; Z87.81 Personal history of (healed) traumatic fracture; Z87.820 Personal history of traumatic brain injury; Z90.710 Acquired absence of both cervix and uterus; Z88.8 Allergy status to other drugs, medicaments and biological substances; Z91.018 Allergy to other foods; Z82.49 Family history of ischemic heart disease and other diseases of the circulatory system; Z80.1 Family history of malignant neoplasm of trachea, bronchus and lung; Z83.2 Family history of diseases of the blood and blood-forming organs and certain disorders involving the immune mechanism; Z84.89 Family history of other specified conditions
CPT/HCPCS: 80048; 80053; 81001; 85025; 87086

== ENCOUNTER 2021-03-18 14:42 | Emergency (ER) | payer BC ==
[2021-03-18 15:24] VITALS: BP 105/71; PULSE 72; RESP 16; TEMP 98
[2021-03-18] MEDS ORDERED: DIPH,PERTUS(ACELL)TETVAC-LF 0.5 ML VIAL IM ONE (17:24)
--- NOTE | 2021-03-18 17:34 | ED ---
General Adult HPI - General Chief complaint: Wound/Laceration Stated complaint: Fall/Hit Head Source: patient, family Mode of arrival: wheelchair Limitations: no limitations - History of Present Illness Initial comments: 61-year-old white female, alert and oriented 4, presents to the emergency room after choking in the yard today 0.4 indicating the right side of her face on a rock in the corner of the sandbox. Patient states this happened around 2:00 this afternoon. She states that her last tetanus shot was given and 2020. She denies any loss of consciousness, no blood thinners. She does state that she has a throbbing headache. She denies any back pain but she does state that her neck is stiff. -: hour(s) (3) Location: face (left eye) Radiation: non-radiation Severity scale (1-10): 5 Quality: other (Throbbing) Consistency: constant Improves with: none Associated Symptoms: headaches Treatments Prior to Arrival: none - Related Data Home Medications Medication Instructions Recorded Confirmed Albuterol Sulfate [Proventil Hfa] 2 puff INHALATION RT-Q6H PRN 09/04/14 11/10/19 Gabapentin [Neurontin] 400 mg PO TID PRN 09/04/14 11/10/19 Loratadine [Claritin] 10 mg PO DAILY 09/04/14 11/10/19 buPROPion HCL [Wellbutrin XL] 300 mg PO DAILY 09/04/14 11/10/19 diphenhydrAMINE [Benadryl] 25 mg PO HS 09/04/14 11/10/19 Baclofen [Lioresal] 10 mg PO TID PRN 12/17/17 11/10/19 Meclizine [Antivert] 12.5 mg PO BID PRN 12/17/17 11/10/19 Nitroglycerin Sl Tabs [Nitrostat] 0.4 mg SUBLINGUAL Q5M PRN 12/17/17 11/10/19 Vortioxetine Hydrobromide 5 mg PO DAILY 12/17/17 11/10/19 [Trintellix] ALPRAZolam [Xanax] 0.5 mg PO DAILY PRN 08/09/18 11/10/19 Levothyroxine Sodium [Synthroid] 100 mcg PO DAILY 08/09/18 11/10/19 Zaleplon [Sonata] 5 mg PO HS PRN 06/17/19 11/10/19 traMADol HCL [Ultram] 50 mg PO DAILY PRN 06/17/19 11/10/19 Ascorbic Acid [Vitamin C] 500 mg PO DAILY 07/04/19 11/10/19 Cholecalciferol [Vitamin D3 (25 2,000 unit PO DAILY 07/04/19 11/10/19 Mcg = 1000 Iu)] Multivitamins, Thera [Multivitamin 1 tab PO DAILY 07/04/19 11/10/19 (formulary)] Calcium Carbonate [Calcium] 600 mg PO DAILY 11/10/19 11/10/19 Previous Rx's Medication Instructions Recorded Cefuroxime Axetil [Ceftin] 500 mg PO BID 3 Days #6 tab 11/12/19 HYDROcodone/APAP 5-325MG [[place] 1 each PO Q4HR PRN #12 tab 11/12/19 5-325] Ondansetron Odt [Zofran Odt] 4 mg PO Q8HR PRN #8 tab 11/12/19 Tamsulosin [Flomax] 0.4 mg PO PC-BRKFST 30 Days #30 11/12/19 cap.er.24h Cephalexin [Keflex] 500 mg PO Q6HR 7 Days #28 cap 03/18/21 Allergies Allergy/AdvReac Type Severity Reaction Status Date / Time cashew nut AdvReac MIGRAINES Verified 03/18/21 15:24 epinephrine AdvReac Unknown Verified 03/18/21 15:24 Review of Systems ROS Statement: Those systems with pertinent positive or pertinent negative responses have been documented in the HPI. ROS Other: All systems not noted in ROS Statement are negative. Past Medical History Past Medical History: Hyperlipidemia, Thyroid Disorder Additional Past Medical History / Comment(s): hx fall-cracked 3 vertebre, chronic back pain, sciatica, past ovarian cysts,uti,past uterine fibroids, vertigo,arthritis hips & tailbone. head injury as child-fell of a horse."leaky aortic valve", early macular degeneration, hx pvc's, bronchitis, seasonal allergies, rosacea.,kidney stones History of Any Multi-Drug Resistant Organisms: None Reported Past Surgical History: Bladder Surgery, Cardiac Ablation, Heart Catheterization, Hysterectomy, Orthopedic Surgery Additional Past Surgical History / Comment(s): cardiac ablation, rt ulna shortening with metal bar, rt carpal tunnel, D&C, kidney stone with stent put in 2019 Past Anesthesia/Blood Transfusion Reactions: Motion Sickness Past Psychological History: Anxiety, Depression Smoking Status: Never smoker Past Alcohol Use History: Occasional Past Drug Use History: None Reported - Past Family History Mother Family Medical History: Deep Vein Thrombosis (DVT) Additional Family Medical History / Comment(s): arrythmia, fibroids,varicose veins, severe gluten allergies, ozzy mastectomy d/t benign tumors Father Family Medical History: Cancer, Myocardial Infarction ([place]) Additional Family Medical History / Comment(s): lung cancer General Exam Limitations: no limitations General appearance: alert, in no apparent distress Head exam: Present: normocephalic, other (Bruising to the right orbit laceration to the right eyebrow approximately 1 cm) Eye exam: Present: PERRL, EOMI, periorbital swelling, periorbital tenderness. Absent: nystagmus ENT exam: Present: normal exam, normal oropharynx, mucous membranes moist Neck exam: Present: normal inspection, tenderness, full ROM. Absent: meningismus, lymphadenopathy, thyromegaly Respiratory exam: Present: normal lung sounds bilaterally. Absent: respiratory distress, wheezes, rales, rhonchi, stridor Cardiovascular Exam: Present: regular rate, normal rhythm, normal heart sounds. Absent: systolic murmur, diastolic murmur, rubs, gallop, clicks Extremities exam: Present: normal inspection, full ROM, normal capillary refill. Absent: tenderness, pedal edema, joint swelling, calf tenderness Back exam: Present: normal inspection, full ROM, tenderness (c spine). Absent: CVA tenderness (R), CVA tenderness (L), muscle spasm, paraspinal tenderness, vertebral tenderness, rash noted Neurological exam: Present: alert, oriented X3, CN II-XII intact Psychiatric exam: Present: normal affect, normal mood Skin exam: Present: warm, dry, intact, normal color. Absent: rash Course Vital Signs 03/18/21 15:21 Temperature 98 F Pulse Rate 72 Respiratory 16 Rate Blood Pressure 105/71 O2 Sat by Pulse 99 Oximetry Medical Decision Making - Medical Decision Making CT facial bones shows no fractures, no orbital fracture, zygomatic arches appear normal. Soft tissue swelling noted. CT of the brain and C-spine shows no mass or midline shift, no intracranial hemorrhage. C-spine shows anterior spurring C4 to T1 no compression fractures. Laceration was cleansed with saline and approximated with Dermabond glue. The patient's tetanus shot was updated at this visit. She was prescribed Keflex. Patient and spouse directed to return if any worsening symptoms including pain, headache, fever or signs of infection including redness or drainage. Case discussed with Dr. Rosario. Disposition Clinical Impression: Laceration, Facial contusion Disposition: HOME SELF-CARE Condition: Good Additional Instructions: Return if any new or worsening symptoms including increased headache, nausea or vomiting or signs of infection including fever or redness or drainage. Take antibiotics as prescribed. Follow-up with the primary care doctor in 1 week Prescriptions: Cephalexin [Keflex] 500 mg PO Q6HR 7 Days #28 cap Is patient prescribed a controlled substance at d/c from ED?: No Referrals: Gustavo Lopez III, MD [Primary Care Provider] - 1-2 days Time of Disposition: 19:02
[2021-03-18] MEDS ORDERED: TOPICAL SKIN ADHESIVE 1 EACH AMP TOPICAL ONE (17:38)
[2021-03-18] MEDS ORDERED: HYDROcodone/APAP 5-325MG 1 EACH TAB PO STA (17:38)
--- NOTE | 2021-03-18 18:55 | CT ---
EXAMINATION TYPE: CT brain cspine wo con DATE OF EXAM: 03/18/2021 COMPARISON: September 04, 2014 HISTORY: Fall. CT DLP: 1157.8 mGycm Automated exposure control for dose reduction was used. Exam performed with no contrast. There is mild cerebral atrophy. There is no mass effect nor midline shift. There is no sign of intrac ranial hemorrhage. Calvarium is intact. Skull base is intact. There is normal aeration of the mastoid sinuses. There is some right side periorbital soft tissue swelling. Cervical vertebra have normal alignment. There is anterior spurring from C4 to T1. Posterior elements are intact. Facet joints are intact. There is no compression fracture. Prevertebral soft tissues are intact. IMPRESSION: Negative CT scan of the brain. Mild atrophy. No adverse change. Spondylotic changes in the cervical spine. No adverse change. No fracture.
--- NOTE | 2021-03-18 18:58 | CT ---
EXAMINATION TYPE: CT facial bones wo con DATE OF EXAM: 03/18/2021 COMPARISON: None HISTORY: Fall. Pain. CT DLP: mGycm Automated exposure control for dose reduction was used. Images obtained from the bottom of the mandible to the top of the frontal sinuses without contrast. The mandibular ring appears intact. Temporomandibular joints are intact. Zygomatic arches appear norm al. There is normal aeration of the paranasal sinuses. I see no bony destructive process. Maxilla is intact. Nasal bone is intact. There is no evidence of orbital blowout fracture. There is no evidence of orbital mass. Orbital margins are intact. No evidence of orbital fracture. There is some mild soft tissue swelling lateral to the right orbit. The globes are symmetric. IMPRESSION: No fracture seen. Mild right side periorbital soft tissue swelling.
== END 2021-03-18 19:55 | disposition home or self-care (01) ==
LOC: EC 14:42
DX: S01.111A Laceration without foreign body of right eyelid and periocular area, initial encounter (principal); E78.5 Hyperlipidemia, unspecified; F32.9 Major depressive disorder, single episode, unspecified; F41.9 Anxiety disorder, unspecified; Z79.51 Long term (current) use of inhaled steroids; Z79.890 Hormone replacement therapy; Z79.899 Other long term (current) drug therapy; Z80.1 Family history of malignant neoplasm of trachea, bronchus and lung; Z82.49 Family history of ischemic heart disease and other diseases of the circulatory system; Z23 Encounter for immunization; W01.198A Fall on same level from slipping, tripping and stumbling with subsequent striking against other object, initial encounter; Y92.096 Garden or yard of other non-institutional residence as the place of occurrence of the external cause
CPT/HCPCS: 12011; 70450; 70486; 72125; 90471; 90715; 99284

== ENCOUNTER → 2024-05-21 | Outpatient (CLI) | payer MEDICARE, OTHER ==
--- NOTE | 2024-05-21 09:38 | MM ---
Reason for Exam: Clinical finding. Last mammogram was performed 4 year(s) and 10 month(s) ago. Indicated Problems: Lump or thickening of the right side for 2 Week(s). Patient History: Menarche at age 9. First Full-Term at age 17. Hysterectomy at age 48. Postmenopausal. 11/17/2016, Benign Core Biopsy on the left side. Paternal aunt had breast cancer, age 60. Risk Values: Payal 5 year model risk: 1.6%. NCI Lifetime model risk: 5.7%. Tissue Density: The breasts are heterogeneously dense, which may obscure small masses. Findings: Analyzed By CAD. No distinct mass or distortion. Benign-appearing calcifications bilaterally. No discrete mass at the site of clinical concern right breast. Ultrasound recommended. Overall Assessment: Incomplete: need additional imaging evaluation, BI-RAD 0 Management: Diagnostic Breast Ultrasound of the right breast. . Results were given to the patient verbally at the time of exam. Patient should continue monthly self-breast exams. A clinical breast exam by your physician is recommended on an annual basis. This exam should not preclude additional follow-up of suspicious palpable abnormalities. Note on Payal scores and lifetime risk: 1. A Payal score greater than 3% is considered moderate risk. If this is the case, consider specialist referral to assess eligibility for a risk reducing agent. 2. If overall lifetime risk for the development of breast cancer is 20% or higher, the patient may qualify for future screening with alternating mammogram and breast MRI. [facility], , 05/21/2024 9:35 AM. Electronically signed and approved by: Niko Guaman M.D. Radiologis
--- NOTE | 2024-05-21 10:00 | USB ---
Reason for Exam: Clinical finding. Patient History: Menarche at age 9. First Full-Term at age 17. Hysterectomy at age 48. Postmenopausal. 11/17/2016, Benign Core Biopsy on the left side. Paternal aunt had breast cancer, age 60. Risk Values: Payal 5 year model risk: 1.6%. NCI Lifetime model risk: 5.7%. Technique: Method: Targeted. Prior Study Comparison: 05/21/2017 Left Diagnostic Mammogram, [facility]. 04/30/2018 Bilateral Screening Mammogram, [facility]. 07/16/2019 Bilateral Screening Mammogram, [facility]. Findings: The area of palpable concern of the right breast and the axilla of the right breast were scanned. No solid or cystic masses are identified. Couple of Normal-appearing lymph nodes within the right axilla.. Overall Assessment: Benign, BI-RAD 2 Management: Screening Mammogram of both breasts in 1 year. A clinical breast exam by your physician is recommended on an annual basis and results should be correlated with mammographic findings. This exam should not preclude additional follow-up of suspicious palpable abnormalities. Results were given to the patient verbally at the time of exam. [facility], , 05/21/2024 9:57 AM. Electronically signed and approved by: Niko Guaman M.D. Radiologis
== END | disposition home or self-care (01) ==
LOC: RADMAMWWP 09:12
PROVIDERS: ATTEND Internal Medicine
CPT/HCPCS: 77062; 77066

== ENCOUNTER 2024-10-02 12:25 | Emergency (ER) | payer MEDICARE, OTHER ==
[2024-10-02 13:07] LABS: Basophils % (A) 0 %; Eosinophils # (A) 0.2 k/uL (0-0.7); Eosinophils % (A) 3 %; HCT 40.1 % (34.0-46.0); HGB 13.3 gm/dL (11.4-16.0); Lymphocytes # (A) 1.1 k/uL (1.0-4.8); Lymphocytes % (A) 15 %; MCH 32.9 pg (25.0-35.0); MCHC 33.2 g/dL (31.0-37.0); MCV 98.9 fL (80.0-100.0); Mean Platelet Volume 8.1; Monocytes # (A) 0.5 k/uL (0-1.0); Monocytes % (A) 6 %; Neutrophils # (A) 5.6 k/uL (1.3-7.7); Neutrophils % (A) 74 %; Platelet Count 270 k/uL (150-450); RBC 4.05 m/uL (3.80-5.40); RDW 14.1 % (11.5-15.5); WBC 7.5 k/uL (3.8-10.6)
--- NOTE | 2024-10-02 13:19 | ED ---
General Adult HPI - General Chief complaint: Chest Pain Stated complaint: Weakness,Muscle spasms Time Seen by Provider: 10/02/24 12:36 Source: patient, RN notes reviewed, old records reviewed Mode of arrival: ambulatory Limitations: no limitations - History of Present Illness Initial comments: 64-year-old female presenting with generalized twitching this is both of her arms and legs. Has been present for the past 36 hours. Patient denies focal numbness or weakness. She states she has had some very brief episodes of chest pain which were just lasting a couple seconds at a time no sustained chest pain. No vomiting. She states she recently has significantly increased her water intake, because she previously was only drinking 2 glasses of water daily. She began drinking more fluids 5 days ago. She has had no vomiting. No diarrhea. - Related Data Home Medications Medication Instructions Recorded Confirmed Gabapentin [Neurontin] 400 mg PO TID@0900,1600,2200 09/04/14 10/02/24 buPROPion HCL [Wellbutrin XL] 300 mg PO DAILY 09/04/14 10/02/24 Baclofen [Lioresal] 10 mg PO Q8H PRN 12/17/17 10/02/24 Levothyroxine Sodium [Synthroid] 100 mcg PO DAILY 08/09/18 10/02/24 Atorvastatin [Lipitor] 40 mg PO HS@2200 10/02/24 10/02/24 Escitalopram [Lexapro] 20 mg PO DAILY 10/02/24 10/02/24 HYDROcodone/APAP 5-325MG [[place] 0.5 tab PO DAILY PRN 10/02/24 10/02/24 5-325] Meloxicam [Mobic] 15 mg PO HS@2200 10/02/24 10/02/24 hydrOXYzine HCL [Atarax] 50 mg PO HS@2200 10/02/24 10/02/24 valACYclovir HCL [Valtrex] 500 mg PO BID@1100,2300 10/02/24 10/02/24 Allergies Allergy/AdvReac Type Severity Reaction Status Date / Time cashew nut AdvReac MIGRAINES Verified 10/02/24 13:38 epinephrine AdvReac Unknown Verified 10/02/24 13:38 Review of Systems ROS Statement: Those systems with pertinent positive or pertinent negative responses have been documented in the HPI. ROS Other: All systems not noted in ROS Statement are negative. Past Medical History Past Medical History: Hyperlipidemia, Thyroid Disorder Additional Past Medical History / Comment(s): hx fall-cracked 3 vertebre, chronic back pain, sciatica, past ovarian cysts,uti,past uterine fibroids, vertigo,arthritis hips & tailbone. head injury as child-fell of a horse."leaky aortic valve", early macular degeneration, hx pvc's, bronchitis, seasonal allergies, rosacea.,kidney stones History of Any Multi-Drug Resistant Organisms: None Reported Past Surgical History: Bladder Surgery, Cardiac Ablation, Heart Catheterization, Hysterectomy, Orthopedic Surgery Additional Past Surgical History / Comment(s): cardiac ablation, rt ulna shortening with metal bar, rt carpal tunnel, D&C, kidney stone with stent put in 2019 Past Anesthesia/Blood Transfusion Reactions: Motion Sickness Past Psychological History: Anxiety, Depression Smoking Status: Never smoker Past Alcohol Use History: Occasional Past Drug Use History: None Reported - Past Family History Mother Family Medical History: Deep Vein Thrombosis (DVT) Additional Family Medical History / Comment(s): arrythmia, fibroids,varicose veins, severe gluten allergies, ozzy mastectomy d/t benign tumors Father Family Medical History: Cancer, Myocardial Infarction ([place]) Additional Family Medical History / Comment(s): lung cancer General Exam Limitations: no limitations General appearance: alert, in no apparent distress Head exam: Present: atraumatic, normocephalic Eye exam: Present: normal appearance, PERRL ENT exam: Present: mucous membranes dry Neck exam: Present: normal inspection. Absent: tenderness, meningismus Respiratory exam: Present: normal lung sounds bilaterally. Absent: respiratory distress, wheezes, rales Cardiovascular Exam: Present: regular rate, normal rhythm GI/Abdominal exam: Present: soft. Absent: distended, tenderness, guarding Extremities exam: Present: normal inspection, normal capillary refill. Absent: pedal edema, calf tenderness Neurological exam: Present: alert, oriented X3, CN II-XII intact, other (No ataxia). Absent: motor sensory deficit Psychiatric exam: Present: normal affect, normal mood Skin exam: Present: warm, dry, intact Course Vital Signs 10/02/24 12:31 Temperature 97.8 F Pulse Rate 92 Respiratory 18 Rate Blood Pressure 107/72 O2 Sat by Pulse 96 Oximetry Medical Decision Making - Medical Decision Making Was pt. sent in by a medical professional or institution ([facility], LEARN TO SWIM INSTRUCTOR, urgent care, hospital, or [place] health care facility...) When possible be specific @ -No Did you speak to anyone other than the patient for history (EMS, parent, family, police, friend...)? What history was obtained from this source @ -No Did you review nursing and triage notes (agree or disagree)? Why? @ -I reviewed and agree with nursing and triage notes Were old charts reviewed (outside hosp., previous admission, EMS record, old EKG, old radiological studies, urgent care reports/EKG's, [place] health care facility records)? Report findings @ -No old charts were reviewed Differential Weakness: Hypoglycemia, shock, sepsis, hyponatremia, anemia, infection, [place], ETOH, adverse medicine reaction, overdose, stroke, this is not meant to be an all-inclusive list. EKG interpreted by me (3pts min.). @Sinus rhythm rate of 84, NH interval 163, QRS duration 88, QTc [address] segment elevation. X-rays interpreted by me (1pt min.). @Chest x-ray negative for acute cardiopulmonary findings. CT interpreted by me (1pt min.). @ -None done U/S interpreted by me (1pt. min.). @ -None done What testing was considered but not performed or refused? (CT, X-rays, U/S, labs)? Why? @ -None What meds were considered but not given or refused? Why? @ -None Did you discuss the management of the patient with other professionals (professionals i.e. [facility], LEARN TO SWIM INSTRUCTOR, lab, RT, psych nurse, administrator social welfare, environmental field office manager, teacher, learning officer, bilingual patient support caseworker)? Give summary @ -No Was smoking cessation discussed for >3mins.? @ -No Was critical care preformed (if so, how long)? @ -No Were there social determinants of health that impacted care today? How? (Homelessness, low income, unemployed, alcoholism, drug addiction, tra nsportation, low edu. Level, literacy, decrease access to med. care, usp, rehab)? @ -No Was there de-escalation of care discussed even if they declined (Discuss DNR or withdrawal of care, Hospice)? DNR status @ -No What co-morbidities impacted this encounter? (DM, HTN, Smoking, COPD, CAD, Cancer, CVA, ARF, Chemo, Hep., AIDS, mental health diagnosis, sleep apnea, morbid obesity)? @ -None Was patient admitted / discharged? Hospital course, mention meds given and route, prescriptions, significant lab abnormalities, going to OR and other pertinent info. @ -64-year-old female presenting with generalized twitching. No significant tremor on exam. No focal numbness or weakness. No ataxia. Patient is in sinus rhythm without ST segment changes. Chest x-ray is clear. She has a normal CBC, negative troponin. CMP reveals an elevated BUN and creatinine which is new compared to prior. Creatinine is 2.6 from a baseline of 0.71. I did offer admission for hydration patient declines at this time. She states she will continue to drink additional fluids and she will follow-up with her primary care for repeat BUN and creatinine. She is instructed to drink at least 70 ounces of water daily. Undiagnosed new problem with uncertain prognosis? @ -No Drug Therapy requiring intensive monitoring for toxicity (Heparin, Nitro, Insulin, Cardizem)? @ -No Were any procedures done? @ -No Diagnosis/symptom? @AYLA, dehydration Acute, or Chronic, or Acute on Chronic? @ -Acute Uncomplicated (without systemic symptoms) or Complicated (systemic symptoms)? @ -Default Side effects of treatment? @ -No Exacerbation, Progression, or Severe Exacerbation? @ -No Poses a threat to life or bodily function? How? (Chest pain, [place], [place], pneumonia, PE, COPD, DKA, ARF, appy, cholecystitis, CVA, Diverticulitis, Homicidal, Suicidal, threat to staff... and all critical care pts) @ -Low risk at this time - Lab Data Result diagrams: 10/02/24 12:55 10/02/24 12:55 Lab Results 10/02/24 10/02/24 10/02/24 Range/Units 12:55 12:55 12:55 WBC 7.5 (3.8-10.6) k/uL RBC 4.05 (3.80-5.40) m/uL Hgb 13.3 (11.4-16.0) gm/dL Hct 40.1 (34.0-46.0) % MCV 98.9 (80.0-100.0) fL MCH 32.9 (25.0-35.0) pg MCHC 33.2 (31.0-37.0) g/dL RDW 14.1 (11.5-15.5) % Plt Count 270 (150-450) k/uL MPV 8.1 Neutrophils % 74 % Lymphocytes % 15 % Monocytes % 6 % Eosinophils % 3 % Basophils % 0 % Neutrophils # 5.6 (1.3-7.7) k/uL Lymphocytes # 1.1 (1.0-4.8) k/uL Monocytes # 0.5 (0-1.0) k/uL Eosinophils # 0.2 (0-0.7) k/uL Basophils # 0.0 (0-0.2) k/uL PT 10.2 (10.0-12.5) sec INR 0.9 (<1.2) APTT 22.1 (22.0-30.0) sec Sodium 138 (137-145) mmol/L Potassium 4.2 (3.5-5.1) mmol/L Chloride 105 (98-107) mmol/L Carbon Dioxide 27 (22-30) mmol/L Anion Gap 6 mmol/L BUN 29 H (7-17) mg/dL Creatinine 2.68 H (0.52-1.04) mg/dL Est GFR (CKD-EPI)AfAm 21 (>60 ml/min/1.73 sqM) Est GFR (CKD-EPI)NonAf 18 (>60 ml/min/1.73 sqM) Glucose 111 H (74-99) mg/dL Calcium 9.3 (8.4-10.2) mg/dL Magnesium 2.4 H (1.6-2.3) mg/dL Total Bilirubin 0.7 (0.2-1.3) mg/dL AST 20 (14-36) U/L ALT 16 (4-34) U/L Alkaline Phosphatase 124 (38-126) U/L Troponin I (0.000-0.034) ng/mL Total Protein 6.4 (6.3-8.2) g/dL Albumin 3.9 (3.5-5.0) g/dL 10/02/24 Range/Units 12:55 WBC (3.8-10.6) k/uL RBC (3.80-5.40) m/uL Hgb (11.4-16.0) gm/dL Hct (34.0-46.0) % MCV (80.0-100.0) fL MCH (25.0-35.0) pg MCHC (31.0-37.0) g/dL RDW (11.5-15.5) % Plt Count (150-450) k/uL MPV Neutrophils % % Lymphocytes % % Monocytes % % Eosinophils % % Basophils % % Neutrophils # (1.3-7.7) k/uL Lymphocytes # (1.0-4.8) k/uL Monocytes # (0-1.0) k/uL Eosinophils # (0-0.7) k/uL Basophils # (0-0.2) k/uL PT (10.0-12.5) sec INR (<1.2) APTT (22.0-30.0) sec Sodium (137-145) mmol/L Potassium (3.5-5.1) mmol/L Chloride (98-107) mmol/L Carbon Dioxide (22-30) mmol/L Anion Gap mmol/L BUN (7-17) mg/dL Creatinine (0.52-1.04) mg/dL Est GFR (CKD-EPI)AfAm (>60 ml/min/1.73 sqM) Est GFR (CKD-EPI)NonAf (>60 ml/min/1.73 sqM) Glucose (74-99) mg/dL Calcium (8.4-10.2) mg/dL Magnesium (1.6-2.3) mg/dL Total Bilirubin (0.2-1.3) mg/dL AST (14-36) U/L ALT (4-34) U/L Alkaline Phosphatase (38-126) U/L Troponin I <0.012 (0.000-0.034) ng/mL Total Protein (6.3-8.2) g/dL Albumin (3.5-5.0) g/dL Disposition Clinical Impression: Dehydration, AYLA (acute kidney injury) Disposition: HOME SELF-CARE Condition: Fair Instructions (If sedation given, give patient instructions): Dehydration (ED), Acute Kidney Injury (DC) Additional Instructions: Please have your laboratory test including kidney function checked within 1 week. Please drink plenty of fluids. Please return to the emergency department with any worsening or changing symptoms. Please also discontinue your Mobic prescription for the next 1 week until your labs can be rechecked Is patient prescribed a controlled substance at d/c from ED?: No Referrals: Chris Woodard DO [Primary Care Provider] - 1-2 days Time of Disposition: 14:00
[2024-10-02 13:20] LABS: ALT 16 U/L (4-34); AST 20 U/L (14-36); African American GFR (CKD) 21 (>60 ml/min/1.73 sqM); Albumin 3.9 g/dL (3.5-5.0); Alkaline Phosphatase 124 U/L (38-126); Anion Gap 6 mmol/L; Blood Urea Nitrogen 29 mg/dL (7-17); Calcium 9.3 mg/dL (8.4-10.2); Carbon Dioxide 27 mmol/L (22-30); Chloride 105 mmol/L (98-107); Glucose 111 mg/dL (74-99); Magnesium 2.4 mg/dL (1.6-2.3); Non-African American GFR(CKD) 18 (>60 ml/min/1.73 sqM); Potassium 4.2 mmol/L (3.5-5.1); Sodium 138 mmol/L (137-145); Total Bilirubin 0.7 mg/dL (0.2-1.3); Total Protein 6.4 g/dL (6.3-8.2)
[2024-10-02 13:25] LABS: INR 0.9 (<1.2); Partial Thromboplastin Time 22.1 sec (22.0-30.0); Prothrombin Time 10.2 sec (10.0-12.5)
--- NOTE | 2024-10-02 13:45 | XR ---
EXAMINATION TYPE: XR chest 2V DATE OF EXAM: 10/02/2024 1:25 PM COMPARISON: Chest radiographs from 12/17/2017 CLINICAL INDICATION: Female, 64 years old with history of Chest Pain; [facility] TECHNIQUE: XR chest 2V Frontal and lateral views of the chest. FINDINGS: Lungs/Pleura: There is no evidence of pleural effusion, focal consolidation, or pneumothorax. Pulmonary vascularity: Unremarkable. Heart/mediastinum: Cardiomediastinal silhouette is unremarkable. Musculoskeletal: No acute osseous pathology. IMPRESSION: No acute cardiopulmonary disease/process. [facility], , 10/02/2024 1:43 PM
[2024-10-02] MEDS: SODIUM CHLORIDE 0.9% 1,000 ML IV ONE (14:07)
[2024-10-02 15:18] VITALS: BP 145/83; PULSE 75; RESP 20; TEMP 98.6
== END 2024-10-02 15:18 | disposition home or self-care (01) ==
LOC: EC 12:25
DX: E86.0 Dehydration (principal); N17.9 Acute kidney failure, unspecified
CPT/HCPCS: 36415; 71046; 80053; 83735; 84484; 85025; 85610; 85730; 93005; 96360; 99285

== ENCOUNTER → 2024-10-22 | Outpatient (CLI) | payer MEDICARE ==
--- NOTE | 2024-10-22 09:34 | US ---
EXAMINATION TYPE: US abdomen complete DATE OF EXAM: 10/22/2024 COMPARISON: NONE CLINICAL INDICATION: Female, 64 years old with history of N17.9 ACUTE KIDNEY FAILURE, UNSPECIFIED; el evated liver enzymes renal disease. Limited due to body habitus and bowel gas. TECHNIQUE: Grayscale and color Doppler imaging of the abdomen was performed. FINDINGS: EXAM MEASUREMENTS: Liver Length: 18.3 cm Gallbladder Wall: .3 cm CBD: .4 cm, color Doppler imaging was utilized to isolate the common bile duct for measurement. Spleen: 8.3cm Right Kidney: 10 x 5 x 4.7 cm Left Kidney: 10.6 x 5.3 x 4.3 cm VISION THERAPIST NOTES: Pancreas: Obscured by bowel gas Liver: Increased attenuation, no dilated ducts, masses or cysts. Gallbladder: Polyp visualized. Evidence for sonographic Amado's sign: no CBD: wnl Spleen: wnl Right Kidney: wnl, No hydronephrosis, calculi or masses seen Left Kidney: Echogenic area upper pole 1.4 cm. Upper IVC: wnl Abd Aorta: wnl Pancreas is obscured by overlying bowel gas. The liver demonstrates increased attenuation with no dil ated ducts, masses or cysts. Noncirrhotic morphology. Gallbladder polyp visualized measuring up to 0. 6 cm. No shadowing gallstones, wall thickening or surrounding fluid. Negative sonographic Amado sign . Common bile duct is within normal limits. Spleen is within normal limits. Right kidney demonstrates no hydronephrosis, calculi or solid mass. Left kidney demonstrates no hydronephrosis or solid mass. Nonobstructing 1.4 cm left renal upper pole calculus. The visualized portions of the upper IVC and ab dominal aorta are within normal limits. IMPRESSION: 1. No ultrasound evidence for acute process. 2. No obstructive uropathy. Nonobstructive left renal calculus. 3. Hepatic steatosis. 4. Gallbladder polyp measuring up to 0.6 cm. Recommend follow-up ultrasound in 6 months to assess for stability. [facility], , 10/22/2024 9:32 AM
[2024-10-22 15:37] LABS: ALT 23 U/L (8-44); AST 20 U/L (13-35); Albumin 4.2 g/dL (3.8-4.9); Albumin/Globulin Ratio 1.83 Ratio (1.60-3.17); Alkaline Phosphatase 131 U/L (41-126); BUN/Creat Ratio 14.22 Ratio (12.00-20.00); Blood Urea Nitrogen 12.8 mg/dL (9.0-27.0); Calcium 9.3 mg/dL (8.7-10.3); Carbon Dioxide 23.8 mmol/L (21.6-31.8); Chloride 106 mmol/L (96-109); Globulin 2.3 g/dL (1.6-3.3); Glucose 108 mg/dL (70-110); Potassium 4.5 mmol/L (3.5-5.5); Sodium 139 mmol/L (135-145); T4, Free (Free Thyroxine) 1.07 ng/dL (0.80-1.80); Total Bilirubin 0.3 mg/dL (0.3-1.2); Total Protein 6.5 g/dL (6.2-8.2)
== END | disposition home or self-care (01) ==
LOC: RADUSWWP 08:51
PROVIDERS: ATTEND Internal Medicine
DX: N20.0 Calculus of kidney (principal); N17.9 Acute kidney failure, unspecified; E03.9 Hypothyroidism, unspecified; R73.9 Hyperglycemia, unspecified; K76.0 Fatty (change of) liver, not elsewhere classified; K82.4 Cholesterolosis of gallbladder
CPT/HCPCS: 76700; 80053; 83036; 84439; 84443

== ENCOUNTER → 2024-11-19 | Outpatient (CLI) | payer MEDICARE, OTHER ==
--- NOTE | 2024-11-19 12:48 | XR ---
EXAMINATION TYPE: XR KUB DATE OF EXAM: 11/19/2024 12:42 PM COMPARISON: 03/25/2018 CLINICAL INDICATION: Female, 64 years old with history of N20.0 CALCULUS OF KIDNEY, TECHNIQUE: XR KUB view(s) obtained. FINDINGS: There is a normal bowel gas pattern. Psoas margins are normal. No organomegaly is present. No discrete suspicious ureteral calcifications. The 0.9 cm calcification left inferior kidney IMPRESSION: 1. 0.9 cm inferior pole left renal stone. [facility], Workstation: [facility], 11/19/2024 12:46 PM
== END | disposition home or self-care (01) ==
LOC: RADXRMAIN 12:28
PROVIDERS: ATTEND Internal Medicine
DX: N20.0 Calculus of kidney (principal); N28.89 Other specified disorders of kidney and ureter
CPT/HCPCS: 74018

== ENCOUNTER → 2025-02-12 | Outpatient (CLI) | payer MEDICARE, OTHER ==
[2025-02-12 19:18] LABS: Basophils # (A) 0.05 X 10*3/uL (0.00-0.10); Basophils % (A) 0.7 %; Eosinophils # (A) 0.37 X 10*3/uL (0.04-0.35); Eosinophils % (A) 5.1 %; HCT 40.8 % (37.2-46.3); HGB 13.4 g/dL (12.0-15.0); Immature Grans, Automated 0.10 %; Lymphocytes # (A) 2.05 X 10*3/uL (0.90-5.00); Lymphocytes % (A) 28.3 %; MCH 32.7 pg (27.0-32.0); MCHC 32.8 g/dL (32.0-37.0); MCV 99.5 FL (80.0-97.0); Monocytes # (A) 0.83 X 10*3/uL (0.20-1.00); Monocytes % (A) 11.5 %; NRBC Per 100 WBC 0 X 10*3/uL (0.00-0.01); Neutrophils # (A) 3.93 X 10*3/uL (1.80-7.70); Neutrophils % (A) 54.3 %; Platelet Count 283 X 10*3/uL (140-440); RBC 4.10 X 10*6/uL (4.10-5.20); RDW 12.4 % (11.5-14.5); WBC 7.24 X 10*3/uL (4.50-10.00)
[2025-02-12 19:21] LABS: Anion Gap 11.70 mmol/L (4.00-12.00); BUN/Creat Ratio 21.88 Ratio (12.00-20.00); Blood Urea Nitrogen 17.5 mg/dL (9.0-27.0); Carbon Dioxide 26.3 mmol/L (21.6-31.8); Chloride 109 mmol/L (96-109); Glucose 108 mg/dL (70-110); Potassium 4.4 mmol/L (3.5-5.5); Sodium 147 mmol/L (135-145)
[2025-02-12 19:22] LABS: Calcium 9.6 mg/dL (8.7-10.3)
[2025-02-12 19:44] LABS: Bilirubin,Urine Negative (Negative); Blood,Urine Negative (Negative); Color,Urine Dark Yellow (Yellow); Ketones,Urine Trace (Negative); Nitrite,Urine Negative (Negative); PH, Urine 5.5; Specific Gravity,Urine 1.030 (1.001-1.030); Urobilinogen,Urine 1.0 E.U./DL
[2025-02-12 21:25] LABS: Bacteria,Urine Trace (None Seen); Calcium Oxalate Crystals,Urine Present (None Seen)
== END | disposition home or self-care (01) ==
LOC: LABPAT 16:19
PROVIDERS: ATTEND Urology
DX: Z01.812 Encounter for preprocedural laboratory examination (principal); N20.0 Calculus of kidney
CPT/HCPCS: 80048; 81001; 85025; 87086

== ENCOUNTER 2025-02-17 08:48 | Day surgery (SDC) | payer MEDICARE, OTHER ==
[2025-02-13 09:45] VITALS: BMI 37.3
[~2025-02-17 08:48] MED LIST changes: -ACETAMINOPHEN TAB 325 MG TAB ONE; -ACETAMINOPHEN TAB 325 MG TAB PO PRN; -ALPRAZolam 0.25 MG TAB PO PRN; -ALPRAZolam 0.5 MG TAB PO PRN; -ASPIRIN 325 MG TAB PO STA; -ATORVASTATIN 80 MG TAB PO STA; -HEPARIN SODIUM 1,000 UN/ML (10ML VL) IV ONE; -HEPARIN SODIUM 1,000 UN/ML (10ML VL) ONE; +HYDROmorphone 0.5 MG/0.5 ML SYRINGE IVP PRN; -IOPAMIDOL-370 125ML BTL INJ ONE; +LIDOCAINE 1% (10MG/ML) FOR IV START INTRADERMA PRN; -LIDOCAINE 1% INJ 10MG/ML (20 ML MDV) ONE; -LIDOCAINE 1% INJ 10MG/ML (20 ML MDV) SQ ONE; -MIDAZOLAM 2 MG/2 ML VIAL IVP ONE; -NITROGLYCERIN SL TABS 0.4 MG TAB SUBLINGUAL PRN; -RX INFO: IV CONTRAST WAS GIVEN 1 EACH MISC MISCELLANE PRN; -SODIUM CHLORIDE 0.9% 1,000 ML IV SCH; -SODIUM CHLORIDE 0.9% 1,000 ML in EMPTY BAG 1 BAG IV ONE; -VERAPAMIL 2.5 MG/ML 2 ML AMP ONE; -VERAPAMIL SYRINGE (5 MG/10 ML) INTRAARTER ONE; +droPERidol 2.5 MG/ML VIAL IVP ONE
--- NOTE | 2025-02-17 09:29 | XR ---
EXAMINATION TYPE: XR KUB DATE OF EXAM: 02/17/2025 9:07 AM COMPARISON: 11/19/2024 CLINICAL INDICATION: Female, 65 years old with history of N20.0 renal stone; PHH, pain, presurgical f or left kidney stone TECHNIQUE: One radiographic view of the abdomen was obtained. FINDINGS: Gassy colon. Redundant sigmoid colon is distended up to 7.7 cm. Moderate stool in the right side of t he colon. No dilated small bowel loops. Bowel content obscures the renal shadows. Tiny right-sided pe lvic phlebolith. IMPRESSION: 1. Bowel content obscures the renal shadows. 2. Gassy colon especially sigmoid colon distended up to 7.7 cm. This may be transient. [facility], , 02/17/2025 9:27 AM
[2025-02-17 09:30] VITALS: TEMP 97.7
[2025-02-17] MEDS: IV FLUID CONTINUATION 1,000 ML IV ONE ×2 (09:30→12:57)
[2025-02-17] MEDS: DEXAMETHASONE SOD PHOSPHATE 4 MG/ML 1 ML VIAL IV ONE (09:36)
[2025-02-17] MEDS: LACTATED RINGERS 1,000 ML IV SCH (09:36)
[2025-02-17] MEDS: ONDANSETRON 4 MG/2 ML VIAL IVP ONE (09:36)
--- NOTE | 2025-02-17 10:06 | P.HPIHPCON ---
History of Present Illness H&P Date: 02/17/25 Chief Complaint: Left renal stone This is a 65-year-old female with history of 1 cm left-sided lower pole stone, she is symptomatic with her stone. Option of left-sided ureteroscopy with holmium laser was discussed. She was aware of the risk which include but not limited to bleeding, infection, injury to the ureter Consent for Procedure: I have explained the operation/procedure to the patient, including the risks, benefits, side effects, alternative therapies (including not receiving the proposed treatment or service), the likelihood of the patient achieving his/her goals, and potential recuperation problems for the procedure/sedation/analgesia, as well as any blood products, if indicated. I also explained to the patient the risks, benefits and side effects of the alternatives, as well as the risks related to not receiving the proposed procedure, care, treatment, or services. Past Medical History Past Medical History: Eye Disorder, Hearing Disorder / Deafness, Hyperlipidemia, Osteoarthritis (OA), Skin Disorder, Thyroid Disorder Additional Past Medical History / Comment(s): Hx fall -cracked 3 vertebra, chronic back pain, sciatica, hx ovarian cysts, uterine fibroids, vertigo, arthritis hips and tailbone. Hx head injury as child -fell of a horse. "Leaky aortic valve, possible leaky mitral valve", PVC's, early macular degeneration, bronchitis, seasonal asthma/allergies -usually flares up in winter/when has a cold, rosacea, hx and current kidney stones, mild hearing loss. History of Any Multi-Drug Resistant Organisms: None Reported Past Surgical History: Bladder Surgery, Cardiac Ablation, Heart Catheterization, Hysterectomy, Orthopedic Surgery Additional Past Surgical History / Comment(s): Right ulna shortening with metal bar, right carpal tunnel, D&C, several kidney stone procedures. Past Anesthesia/Blood Transfusion Reactions: No Reported Reaction, Motion Sickness Additional Past Anesthesia/Blood Transfusion Reaction / Comment(s): Vertigo. Mom slow to wake up. Smoking Status: Former smoker - Past Family History Mother Family Medical History: Deep Vein Thrombosis (DVT) Additional Family Medical History / Comment(s): Arrythmia, fibroids, varicose veins, severe gluten allergies, bilateral mastectomy due to benign tumors. Father Family Medical History: Cancer, Myocardial Infarction ([place]) Additional Family Medical History / Comment(s): Lung cancer. Medications and Allergies Home Medications Medication Instructions Recorded Confirmed Type Gabapentin [Neurontin] 400 mg PO TID 09/04/14 02/17/25 History buPROPion HCL [Wellbutrin XL] 300 mg PO QAM 09/04/14 02/17/25 History Baclofen [Lioresal] 10 mg PO TID PRN 12/17/17 02/17/25 History Levothyroxine Sodium [Synthroid] 100 mcg PO QAM 08/09/18 02/17/25 History Atorvastatin [Lipitor] 40 mg PO HS 10/02/24 02/17/25 History Escitalopram [Lexapro] 20 mg PO QAM 10/02/24 02/17/25 History HYDROcodone/APAP 5-325MG [[place] 1 tab PO TID PRN 10/02/24 02/17/25 History 5-325] Fluticasone Nasal [place] [Flonase 1 spray EA NOSTRIL DAILY PRN 02/13/25 02/17/25 History Nasal [place]] Meclizine [Antivert] 12.5 mg PO TID PRN 02/13/25 02/17/25 History Meloxicam [Mobic] 15 mg PO HS 02/13/25 02/13/25 History Ventolin Inhaler (? Dose) 1 - 2 puff INHALATION DIRECTED 02/13/25 02/17/25 History PRN hydrOXYzine HCL 20 mg PO HS 02/13/25 02/17/25 History hydrOXYzine HCL [Hydroxyzine HCl] 10 mg PO DIRECTED PRN 02/13/25 02/17/25 History Ciprofloxacin HCl [Cipro] 1 tab PO BID 02/17/25 02/17/25 History Allergies Allergy/AdvReac Type Severity Reaction Status Date / Time cashew nut AdvReac MIGRAINES Verified 02/17/25 09:23 epinephrine AdvReac SPEEDS Verified 02/17/25 09:23 HEART UP TOO FAST Surgical - Exam Vital Signs Temp Pulse BP Pulse Ox 97.7 F 63 125/82 97 02/17/25 09:27 02/17/25 09:27 02/17/25 09:27 02/17/25 09:27 - General no distress, no pain - Eyes normal ocular movement, no pale - ENT normal nares, normal mucosa - Respiratory normal expansion, normal respiratory effort - Abdomen Abdomen: soft, non tender Assessment and Plan Assessment: OR for left-sided ureteroscopy, millimeter orthotripsy, stone basketing and stent insertion
[2025-02-17] MEDS ORDERED: PHENYLEPHRINE-0.9% NACL SYG 1,000 MCG/10 ML SYRINGE ONE (10:13)
[2025-02-17] MEDS ORDERED: PROPOFOL 10 MG/ML 20 ML VIAL IV ONE (10:13)
[2025-02-17] MEDS ORDERED: fentaNYL (PF) 50 MCG/ML 2 ML AMP ONE (10:13)
[2025-02-17] MEDS ORDERED: LIDOCAINE 1% INJ 10MG/ML (20 ML MDV) ONE (10:13)
[2025-02-17] MEDS ORDERED: MIDAZOLAM 2 MG/2 ML VIAL ONE (10:13)
[2025-02-17] MEDS ORDERED: SUCCINYLCHOLINE CHLORIDE 200 MG/10 ML VIAL IV ONE (10:13)
--- NOTE | 2025-02-17 11:39 | P.OP ---
Date of Procedure: 02/17/25 Preoperative Diagnosis: Left renal stone Postoperative Diagnosis: Same Procedure(s) Performed: Cystoscopy, left ureteroscopy, holmium laser lithotripsy, stone basketing, stent insertion Implants: 6 [place] by 22 cm stents in the left ureter Anesthesia: CLAU Surgeon: Alireza Bob Estimated Blood Loss (ml): 5 Pathology: other (Left renal stone) Condition: stable Disposition: PACU Indications for Procedure: This is a 65-year-old female with history of 1 cm left-sided lower pole stone, she is symptomatic with her stone. Option of left-sided ureteroscopy with holmium laser was discussed. She was aware of the risk which include but not limited to bleeding, infection, injury to the ureter Description of Procedure: Patient brought to the operating room, general anesthesia was induced. She was prepped and draped in sterile fashion placed in a dorsolithotomy position. Cystoscopy through 21 [place] sheath was inserted per urethra, cystoscopy was performed showed no abnormality within the bladder. Attention was then carried to the left ureteral orifice which was intubated with a sensor wire, the wire was advanced under fluoroscopy into the kidney. Next a 1113 [place] access sheath was passed over the wire into the left proximal ureter. The flexible ureteroscope was inserted through the access sheath, renoscopy was performed showed a large stone in the midpole, using the holmium laser the stone was dusted, any sizable fragments were removed using the stone basket. Repeat renoscopy showed no sizable fragments or injury to the kidney. On fluoroscopy there was no radiopaque density seen, pullback ureteroscopy was performed showed no injury to the ureter and ureteral stone, as ureteroscope was withdrawn a sensor wire was advanced through. Next a ureteral stent was passed over the wire, the proximal curl was visualized on fluoroscopy and the distal curl was visualized using the cystoscope. The the bladder was emptied at the end of the case. Patient tolerated procedure well was taken to recovery in stable condition
--- NOTE | 2025-02-17 11:51 | FL ---
EXAMINATION TYPE: FL guidance operating room DATE OF EXAM: 02/17/2025 FLUOROSCOPY left side renal calculi. Laser removal. Fl time 4 secs dap 2.03 jacinda decker No images are submitted. [facility], , 02/17/2025 11:48 AM
[2025-02-17] MEDS: BENZOCAINE/MENTHOL LOZENG 1 EACH LOZENGE MUCOUS MEM STA (12:22)
[2025-02-17 12:36] VITALS: RESP 16
[2025-02-17 13:10] VITALS: PULSE 72
[2025-02-17 13:21] VITALS: BP 121/68
== END 2025-02-17 13:34 | disposition home or self-care (01) ==
LOC: OR 08:48
PROVIDERS: ATTEND Urology
DX: N20.0 Calculus of kidney (principal); E78.5 Hyperlipidemia, unspecified; E07.9 Disorder of thyroid, unspecified; M54.50 Low back pain, unspecified; Z87.891 Personal history of nicotine dependence; Z87.442 Personal history of urinary calculi; Z82.49 Family history of ischemic heart disease and other diseases of the circulatory system; Z80.1 Family history of malignant neoplasm of trachea, bronchus and lung; Z90.710 Acquired absence of both cervix and uterus; Z79.890 Hormone replacement therapy; Z79.899 Other long term (current) drug therapy
CPT/HCPCS: 82365; 74018; 52356; C2625; C1769; J2250; J0330; J1100; J0690; J2405; J2003; J3010; J2704; J2371